=== PATIENT | male | born 1980 | race Caucasian/White ===

== ENCOUNTER 2019-11-06 01:40 | Inpatient (IN) | payer OTHER ==
[2019-11-06 02:03] LABS: Glucose,Whole Blood 338 mg/dL (75-99)
[2019-11-06] MEDS ORDERED: SODIUM CHLORIDE 0.9% 1,000 ML IV ONE (02:03)
[2019-11-06] MEDS ORDERED: MORPHINE SULFATE 4 MG/ML SYRINGE IVP STA (03:02)
[2019-11-06 03:21] LABS: Partial Thromboplastin Time 22.3 sec (22.0-30.0)
[2019-11-06 03:24] LABS: ALT 49 U/L (4-49); AST 28 U/L (17-59); African American GFR (CKD) >90 (>60 ml/min/1.73 sqM); Albumin 3.9 g/dL (3.5-5.0); Alkaline Phosphatase 80 U/L (38-126); Anion Gap 9 mmol/L; Blood Urea Nitrogen 12 mg/dL (9-20); C Reactive Protein 39.7 mg/L (<10.0); Carbon Dioxide 23 mmol/L (22-30); Chloride 101 mmol/L (98-107); Creatine Kinase <20 U/L (55-170); Glucose 347 mg/dL (74-99); Non-African American GFR(CKD) >90 (>60 ml/min/1.73 sqM); Potassium 4.2 mmol/L (3.5-5.1); Sodium 133 mmol/L (137-145); Total Bilirubin 0.4 mg/dL (0.2-1.3); Total Protein 7.2 g/dL (6.3-8.2); Uric Acid 6.1 mg/dL (3.5-8.5)
[2019-11-06 03:25] LABS: Basophils # (A) 0.1 k/uL (0-0.2); Basophils % (A) 1 %; Eosinophils # (A) 0.1 k/uL (0-0.7); Eosinophils % (A) 2 %; HCT 41.4 % (39.0-53.0); HGB 13.8 gm/dL (13.0-17.5); Lymphocytes # (A) 1.8 k/uL (1.0-4.8); Lymphocytes % (A) 28 %; MCHC 33.4 g/dL (31.0-37.0); MCV 83.7 fL (80.0-100.0); Mean Platelet Volume 7.7; Monocytes # (A) 0.4 k/uL (0-1.0); Monocytes % (A) 7 %; Neutrophils # (A) 3.9 k/uL (1.3-7.7); Neutrophils % (A) 59 %; Platelet Count 185 k/uL (150-450); RBC 4.95 m/uL (4.30-5.90); RDW 13.1 % (11.5-15.5); WBC 6.6 k/uL (3.8-10.6)
[2019-11-06] MEDS ORDERED: VANCOMYCIN IV PER PHARMACY 1 EACH MISC MISCELLANE PRN (03:28)
[2019-11-06] MEDS ORDERED: CEFEPIME 1 GM in SODIUM CHLORIDE 0.9% 50 ML IVPB ONE (03:28)
[2019-11-06] MEDS ORDERED: INSULIN REGULAR 100 UNIT/ML VIAL SQ ONE (03:30)
--- NOTE | 2019-11-06 03:31 | ED ---
Extremity Problem HPI - General Chief complaint: Extremity Problem,Nontraumatic Stated complaint: SOB Time Seen by Provider: 11/06/19 01:52 Source: patient Mode of arrival: ambulatory Limitations: no limitations - History of Present Illness Initial comments: Roney is a morbidly obese type II diabetic male who presents to the ER today for evaluation of left ankle pain. Patient states that since the beginning of the shoulder in place order he has been unable to contact his primary care physician therefore has been out of his metformin. Patient reports he hasn't been able to check his glucose believes is elevated. Patient states he's been experiencing some paresthesias in his bilateral lower extremities with some tingling and pain. Patient states that over the past 3 days he's noticed swelling and redness of his left ankle and today became so tender he was unable to ambulate. Patient denies any injury, denies any history of previous episodes similar to this. He denies any history of gout. Patient reports a fever of 101F yesterday, no fever today. Patient denies any concern for STI or any possibility of gonococcal joint infection. - Related Data Home Medications Medication Instructions Recorded Confirmed metFORMIN HCL [Glucophage] 500 mg PO W/SUPPER 05/07/16 05/11/16 Previous Rx's Medication Instructions Recorded Albuterol Inhaler (Bulk) [Ventolin 1 - 2 puff INHALATION Q6HR PRN #2 05/08/16 Hfa Inhaler (Bulk)] puff Benzonatate [Tessalon Perles] 200 mg PO TID 5 Days capsule 05/08/16 Levofloxacin [Levaquin] 500 mg PO DAILY #10 tab 05/11/16 Promethaz-Cod 6.25-10 mg/5 ml 5 ml PO Q6HR PRN #120 ml 05/11/16 [Phenergan with Codeine] methylPREDNISolone [Medrol Dose 4 mg PO DIRECTED #1 pack 05/11/16 Pack] Allergies Allergy/AdvReac Type Severity Reaction Status Date / Time diphenhydramine HCl Allergy Anaphylaxis Verified 11/06/19 01:49 [From Benadryl] hydromorphone HCl Allergy Anaphylaxis Verified 11/06/19 01:49 [From Dilaudid] latex Allergy Rash/Hives Verified 11/06/19 01:49 Review of Systems ROS Statement: Those systems with pertinent positive or pertinent negative responses have been documented in the HPI. ROS Other: All systems not noted in ROS Statement are negative. Past Medical History Past Medical History: Diabetes Mellitus Additional Past Medical History / Comment(s): Sarcoidosis, PNEUMONIA History of Any Multi-Drug Resistant Organisms: None Reported Past Surgical History: No Surgical Hx Reported Additional Past Surgical History / Comment(s): Exploratory Surgery of neck 2000 Past Psychological History: No Psychological Hx Reported Smoking Status: Never smoker Past Alcohol Use History: None Reported Past Drug Use History: None Reported General Exam - General Exam Comments Initial Comments: Physical Exam GENERAL: Patient is well-developed and well-nourished. Patient is nontoxic and well-hydrated and is in no distress. HENT: Normocephalic, Atraumatic. EYES: PERRL, EOMI PULMONARY: Unlabored respirations. CARDIOVASCULAR: RRR Warm and well perfused extremities ABDOMEN: Non-distended SKIN: No rashes or bruising : Deferred NEUROLOGIC: Alert and oriented Normal speech Normal gait MUSCULOSKELETAL: Swelling of the left ankle with some erythema No pitting edema Range of motion of the ankle limited by pain PSYCHIATRIC: No SI/HI Limitations: no limitations Course Vital Signs 11/06/19 11/06/19 01:44 03:37 Temperature 98.4 F Pulse Rate 109 H 90 Respiratory 20 18 Rate Blood Pressure 147/81 139/97 O2 Sat by Pulse 98 96 Oximetry Medical Decision Making - Medical Decision Making The patient was seen and evaluated, history is obtained from patient History and physical exam are concerning for possible septic joint versus gout Septic workup was initiated, patient does have lactic acidosis and elevated CRP with no elevated uric acid At this time we will treat empirically for septic joint Patient care was discussed with admitting physician Dr. Peña who agrees with the plan for admission, broad-spectrum antibiotics, citing seal insulin and consult orthopedics - Lab Data Result diagrams: 11/06/19 02:47 11/06/19 02:47 Lab Results 11/06/19 11/06/19 11/06/19 Range/Units 02:01 02:47 02:47 WBC 6.6 (3.8-10.6) k/uL RBC 4.95 (4.30-5.90) m/uL Hgb 13.8 (13.0-17.5) gm/dL Hct 41.4 (39.0-53.0) % MCV 83.7 (80.0-100.0) fL MCH 28.0 (25.0-35.0) pg MCHC 33.4 (31.0-37.0) g/dL RDW 13.1 (11.5-15.5) % Plt Count 185 (150-450) k/uL Neutrophils % 59 % Lymphocytes % 28 % Monocytes % 7 % Eosinophils % 2 % Basophils % 1 % Neutrophils # 3.9 (1.3-7.7) k/uL Lymphocytes # 1.8 (1.0-4.8) k/uL Monocytes # 0.4 (0-1.0) k/uL Eosinophils # 0.1 (0-0.7) k/uL Basophils # 0.1 (0-0.2) k/uL PT 10.0 (9.0-12.0) sec INR 1.0 (<1.2) APTT 22.3 (22.0-30.0) sec Sodium (137-145) mmol/L Potassium (3.5-5.1) mmol/L Chloride (98-107) mmol/L Carbon Dioxide (22-30) mmol/L Anion Gap mmol/L BUN (9-20) mg/dL Creatinine (0.66-1.25) mg/dL Est GFR (CKD-EPI)AfAm (>60 ml/min/1.73 sqM) Est GFR (CKD-EPI)NonAf (>60 ml/min/1.73 sqM) Glucose (74-99) mg/dL POC Glucose (mg/dL) 338 H (75-99) mg/dL POC Glu Barrel Finisher ID Reymundo AubreyMee Plasma Lactic Acid Hu (0.7-2.0) mmol/L Uric Acid (3.5-8.5) mg/dL Calcium (8.4-10.2) mg/dL Total Bilirubin (0.2-1.3) mg/dL AST (17-59) U/L ALT (4-49) U/L Alkaline Phosphatase (38-126) U/L Creatine Kinase (55-170) U/L C-Reactive Protein (<10.0) mg/L Total Protein (6.3-8.2) g/dL Albumin (3.5-5.0) g/dL 11/06/19 11/06/19 Range/Units 02:47 02:47 WBC (3.8-10.6) k/uL RBC (4.30-5.90) m/uL Hgb (13.0-17.5) gm/dL Hct (39.0-53.0) % MCV (80.0-100.0) fL MCH (25.0-35.0) pg MCHC (31.0-37.0) g/dL RDW (11.5-15.5) % Plt Count (150-450) k/uL Neutrophils % % Lymphocytes % % Monocytes % % Eosinophils % % Basophils % % Neutrophils # (1.3-7.7) k/uL Lymphocytes # (1.0-4.8) k/uL Monocytes # (0-1.0) k/uL Eosinophils # (0-0.7) k/uL Basophils # (0-0.2) k/uL PT (9.0-12.0) sec INR (<1.2) APTT (22.0-30.0) sec Sodium 133 L (137-145) mmol/L Potassium 4.2 (3.5-5.1) mmol/L Chloride 101 (98-107) mmol/L Carbon Dioxide 23 (22-30) mmol/L Anion Gap 9 mmol/L BUN 12 (9-20) mg/dL Creatinine 0.62 L (0.66-1.25) mg/dL Est GFR (CKD-EPI)AfAm >90 (>60 ml/min/1.73 sqM) Est GFR (CKD-EPI)NonAf >90 (>60 ml/min/1.73 sqM) Glucose 347 H (74-99) mg/dL POC Glucose (mg/dL) (75-99) mg/dL POC Glu Barrel Finisher ID Plasma Lactic Acid Hu 2.3 H* (0.7-2.0) mmol/L Uric Acid 6.1 (3.5-8.5) mg/dL Calcium 9.0 (8.4-10.2) mg/dL Total Bilirubin 0.4 (0.2-1.3) mg/dL AST 28 (17-59) U/L ALT 49 (4-49) U/L Alkaline Phosphatase 80 (38-126) U/L Creatine Kinase <20 L (55-170) U/L C-Reactive Protein 39.7 H (<10.0) mg/L Total Protein 7.2 (6.3-8.2) g/dL Albumin 3.9 (3.5-5.0) g/dL Disposition Clinical Impression: Ankle pain, left, Lactic acidosis, Elevated C-reactive protein (CRP), Uncontrolled diabetes mellitus, Morbid obesity with BMI of 40.0-44.9, adult Disposition: ADMITTED IP TO THIS HOSP Condition: Stable Is patient prescribed a controlled substance at d/c from ED?: No Referrals: None,Stated [Primary Care Provider] - 1-2 days
[2019-11-06] MEDS ORDERED: NALOXONE 0.4 MG/ML 1 ML VIAL IV PRN (03:35)
--- NOTE | 2019-11-06 03:42 | XR ---
EXAMINATION TYPE: XR ankle limited LT DATE OF EXAM: 11/06/2019 COMPARISON: NONE HISTORY: Pain TECHNIQUE: 2 views FINDINGS: Ankle mortise is anatomic. There is a large Achilles calcaneal spur. I see no fracture nor dislocation. IMPRESSION: Calcaneal spurring. No fracture seen.
[2019-11-06 03:53] LABS: Erythrocyte Sedimentation Rate 18 mm/hr (0-15)
[2019-11-06] MEDS ORDERED: VANCOMYCIN 2,000 MG in SODIUM CHLORIDE 0.9% 500 ML 500 ML IVPB ONE (04:00)
[2019-11-06 04:20] LABS: Glucose,Whole Blood 302 mg/dL (75-99)
[2019-11-06] MEDS: SODIUM CHLORIDE 0.9% 1,000 ML IV SCH ×2 (04:29→11:50)
--- NOTE | 2019-11-06 06:27 | P.HPIM ---
History of Present Illness H&P Date: 11/06/19 Chief Complaint: left knee pain I was wearing full PPE during this encounter including N95 mask, face shield, double gloves, gown, and head cover. patient had a surgical mask on during my entire interview. i maintained 6 feet distance with the patient who verbalized understanding about these precautionary measures. except for during my physical exam where i had to be close to the patient. 39-year-old male with diabetes mellitus and sarcoidosis Patient comes in due to 3 day history of left ankle swelling pain and inability to ambulate or stand happened all of a sudden denies any injury or trauma denies any fall this has never happened before he denies any history of gout patient came in due to worsening pain over the past 3 days. He also had at that he started having some fever off and on over the past 3 days associated with coughing mild in nature dry, sore throat, and mild diarrhea loose bowel movement brownish in color. Patient denies any changes in smell or taste sensation denies any headache denies any body aches other than the left ankle. Patient then recalled that he's been in close contact with a friend who has heard that tested positive for Covid 19 she is waiting for her results . Patient also reports recent traveling multiple times to [facility] last traveling was October 05 In the ED x-ray of the left ankle showed no acute fractures Patient was admitted to [address] [place] [address], he did not volunteer the above information early on upon further checking the patient he was a concerns regarding Covid 19 upon which she was transferred to the medical floor to avoid transmitting possible disease to the oncology floor Patient reports that he did not have axis to his primary care physician and he ran out of metformin for few days now Review of Systems Pertinent positives as noted in HPI. All other systems were reviewed and are negative Past Medical History Past Medical History: Diabetes Mellitus Additional Past Medical History / Comment(s): Sarcoidosis, PNEUMONIA History of Any Multi-Drug Resistant Organisms: None Reported Past Surgical History: No Surgical Hx Reported Additional Past Surgical History / Comment(s): Exploratory Surgery of neck 1999 Past Psychological History: No Psychological Hx Reported Smoking Status: Never smoker Past Alcohol Use History: None Reported Past Drug Use History: None Reported - Past Family History Family Family Medical History: No Reported History Medications and Allergies Home Medications Medication Instructions Recorded Confirmed Type metFORMIN HCL [Glucophage] 500 mg PO W/SUPPER 05/07/16 05/11/16 History Albuterol Inhaler (Bulk) [Ventolin 1 - 2 puff INHALATION Q6HR PRN #2 05/08/16 05/11/16 Rx Hfa Inhaler (Bulk)] puff Benzonatate [Tessalon Perles] 200 mg PO TID 5 Days capsule 05/08/16 05/11/16 Rx Levofloxacin [Levaquin] 500 mg PO DAILY #10 tab 05/11/16 Rx Promethaz-Cod 6.25-10 mg/5 ml 5 ml PO Q6HR PRN #120 ml 05/11/16 Rx [Phenergan with Codeine] methylPREDNISolone [Medrol Dose 4 mg PO DIRECTED #1 pack 05/11/16 Rx Pack] Allergies Allergy/AdvReac Type Severity Reaction Status Date / Time diphenhydramine HCl Allergy Anaphylaxis Verified 11/06/19 01:49 [From Benadryl] hydromorphone HCl Allergy Anaphylaxis Verified 11/06/19 01:49 [From Dilaudid] latex Allergy Rash/Hives Verified 11/06/19 01:49 Physical Exam Vitals: Vital Signs Temp Pulse Pulse Resp BP BP Pulse Ox 11/06/19 05:06 101 H 18 11/06/19 04:18 98.5 F 79 18 109/65 95 11/06/19 03:51 98.4 F 101 H 16 139/78 97 11/06/19 03:37 90 18 139/97 96 11/06/19 01:44 98.4 F 109 H 20 147/81 98 Intake and Output 11/05/19 11/05/19 11/06/19 14:59 22:59 06:59 Other: Voiding Method Urinal Weight 145.15 kg Limited exam was performed due to concerns for covid infection to prevent spread of the disease main part of the exam was inspection and examination of the left ankle Constitutional: No acute distress, conversant, pleasant Eyes: Anicteric sclerae, moist conjunctiva, Pupils equal round ENMT: NC/AT Neck: Supple, FROM, Lungs: Normal respiratory effort, no accessory muscle use Cardiovascular: No peripheral edema Abdominal: Soft Nontender, no guarding, rebound or rigidity Abdomen moving with respiration No palpable mass Skin: There is area of redness warmth to the touch over the left ankle extending to the lower third of the left leg otherwise Normal temperature, tone, texture, turgor Extremities: No digital cyanosis No clubbing Pedal pulses intact and symmetrical Radial pulses intact and symmetrical ankle is tender, warm to touch, swollen, painful to passive and active movement. There is swelling of the left lower third of the left leg Psychiatric: Alert and oriented to person, place and time Appropriate affect fair judgement Neuro patient moving all 4 extremities freely Sensation to light touch grossly present throughout No focal sensory deficits Lymphatics: Deferred Results CBC & Chem 7: 11/06/19 02:47 11/06/19 02:47 Labs: Abnormal Lab Results - Last 24 Hours (Table) 11/06/19 11/06/19 11/06/19 Range/Units 02:01 02:47 02:47 ESR 18 H (0-15) mm/hr Sodium 133 L (137-145) mmol/L Creatinine 0.62 L (0.66-1.25) mg/dL Glucose 347 H (74-99) mg/dL POC Glucose (mg/dL) 338 H (75-99) mg/dL Plasma Lactic Acid Hu (0.7-2.0) mmol/L Creatine Kinase <20 L (55-170) U/L C-Reactive Protein 39.7 H (<10.0) mg/L 11/06/19 11/06/19 Range/Units 02:47 04:15 ESR (0-15) mm/hr Sodium (137-145) mmol/L Creatinine (0.66-1.25) mg/dL Glucose (74-99) mg/dL POC Glucose (mg/dL) 302 H (75-99) mg/dL Plasma Lactic Acid Hu 2.3 H* (0.7-2.0) mmol/L Creatine Kinase (55-170) U/L C-Reactive Protein (<10.0) mg/L Thrombosis Risk Factor Assmnt - Choose All That Apply Any of the Below Risk Factors Present?: Yes Each Factor Represents 1 point: Obesity (BMI >25) Thrombosis Risk Factor Assessment Total Risk Factor Score: 1 Thrombosis Risk Factor Assessment Level: Low Risk Assessment and Plan Assessment: 39-year-old male with diabetes mellitus not compliant with metformin, sa rcoidosis Patient comes in due to left ankle swelling pain and inability to ambulate over the past 3 days then he reports that this was associated with some mild cough fever and diarrhea this is suspicious for Covid 19 infection anticipated length of stay more than 2 midnights Left ankle swelling and pain Rule out septic arthritis Rule out left lower extremity DVT Pain control with Toradol Orthopedic consultation Ankle x-ray showed no fractures Venous duplex ultrasound left lower extremity Acute bronchitis, cough fever and diarrhea suspicious for Covid 19 infection Test Covid Test influenza Check chest x-ray Contact and droplet isolation Indigo Schaffer this with hyperglycemia secondary to noncompliance Check A1c Insulin sliding scale CODE STATUS: Full code DVT prophylaxis: Heparin subcu 3 times a day Discussed with: Patient, ER, RN Anticipated length of stay more than [address]: Home A total of 60 minutes was spent on the care of this complex patient more than 50% of the time was spent in counseling and care coordination.
[2019-11-06 06:46] LABS: Glucose,Whole Blood 252 mg/dL (75-99)
[2019-11-06] MEDS: MORPHINE SULFATE 4 MG/ML SYRINGE IV PRN ×2 (07:20→22:36)
[2019-11-06] MEDS: INSULIN ASPART (NovoLOG) 100 UNIT/ML VIAL SQ SCH ×4 (07:23→21:17)
--- NOTE | 2019-11-06 07:55 | XR ---
EXAMINATION TYPE: XR chest 1V DATE OF EXAM: 11/06/2019 COMPARISON: 05/11/2016 HISTORY: Chest pain TECHNIQUE: Single frontal view of the chest is obtained. FINDINGS: Nonspecific infiltrate right medial lung base. The cardiac silhouette size is within normal limits. The osseous structures are intact. IMPRESSION: 1. Nonspecific infiltrate right medial lung base.
--- NOTE | 2019-11-06 08:35 | US ---
EXAMINATION TYPE: US venous doppler duplex LE LT DATE OF EXAM: 11/06/2019 8:30 AM COMPARISON: NONE CLINICAL HISTORY: dvt. Left leg and foot pain x 3 days, exam done portable. SIDE PERFORMED: Left TECHNIQUE: The lower extremity deep venous system is examined utilizing real time linear array sonog adriel with graded compression, doppler sonography and color-flow sonography. VESSELS IMAGED: External Iliac Vein (EIV) Common Femoral Vein Deep Femoral Vein Greater Saphenous Vein * Femoral Vein Popliteal Vein Small Saphenous Vein * Proximal Calf Veins (* superficial vessels) Left Leg: Appears negative for DVT IMPRESSION: No evidence of DVT
[2019-11-06] MEDS ORDERED: ACETAMINOPHEN TAB 325 MG TAB PO PRN (10:04)
--- NOTE | 2019-11-06 10:12 | P.CNOR ---
History of Present Illness - [facility] Consult date: 11/06/19 History of present illness: This patient is a 39-year-old male with a past medical history of diabetes and sarcoidosis that presented to [facility] ER last night with complaints of left ankle pain. The patient states he began to experience left ankle pain about 3 days ago. Patient states there was no injury or trauma to the ankle. He states he just woke up a few days ago with significant pain and swelling. He states the pain has increased over the past 3 days. He states the pain is diffuse. He states the pain is very severe with any movement or weightbearing the left ankle. He states he was crawling around his house yesterday due to the pain. He denies history of gout. He denies history of any similar episodes in the past. Upon arrival to the ER, patient had a fever of 101 degrees, white blood cell count 6.6, ESR 18, CRP 39.7. Venous Doppler study of the left lower extremity negative for DVT. Patient was admitted under the care of of internal medicine with a consult placed to orthopedic surgery for consideration of left ankle septic arthritis. The patient was initially admitted to [facility], although after evaluation by internal medicine, the patient was transferred to [facility], with with concerns for suspected COVID 19 due to recent positive contacts and travel to [place]. At the time of my exam, the patient is complaining of severe left ankle pain. There are no additional complaints. Vital signs stable, patient currently afebrile. Past Medical History Past Medical History: Diabetes Mellitus Additional Past Medical History / Comment(s): Sarcoidosis, PNEUMONIA History of Any Multi-Drug Resistant Organisms: None Reported Past Surgical History: No Surgical Hx Reported Additional Past Surgical History / Comment(s): Exploratory Surgery of neck 1999 Past Psychological History: No Psychological Hx Reported Smoking Status: Never smoker Past Alcohol Use History: None Reported Past Drug Use History: None Reported - Past Family History Family Family Medical History: No Reported History Medications and Allergies Home Medications Medication Instructions Recorded Confirmed Type No Known Home Medications 11/06/19 11/06/19 History Allergies Allergy/AdvReac Type Severity Reaction Status Date / Time diphenhydramine HCl Allergy Anaphylaxis Verified 11/06/19 07:58 [From Benadryl] hydromorphone HCl Allergy Anaphylaxis Verified 11/06/19 07:58 [From Dilaudid] latex Allergy Rash/Hives Verified 11/06/19 07:58 Physical Examination At the time of my exam, the patient is sitting up in bed and appears in mild distress due to pain. He appears uncomfortable. His head appears normocephalic and atraumatic. On inspection of the bilateral upper extremities, there is no obvious deformity or signs of trauma. On inspection of the left ankle, there is a large joint effusion. There is mild overlying erythema. There is severe pain with any attempts at passive range of motion of the ankle. There is no pain on palpation of the left calf or left knee. Motor and sensory function intact left lower extremity. The left lower extremity is warm and well-perfused with brisk capillary refill distally. Results Left ankle x-ray 11/06/2019: No acute fractures or dislocations. Stable ankle mortise. - Labs Labs: Abnormal Lab Results - Last 24 Hours (Table) 11/06/19 11/06/19 11/06/19 Range/Units 02:01 02:47 02:47 ESR 18 H (0-15) mm/hr Sodium 133 L (137-145) mmol/L Creatinine 0.62 L (0.66-1.25) mg/dL Glucose 347 H (74-99) mg/dL POC Glucose (mg/dL) 338 H (75-99) mg/dL Plasma Lactic Acid Hu (0.7-2.0) mmol/L Creatine Kinase <20 L (55-170) U/L C-Reactive Protein 39.7 H (<10.0) mg/L 11/06/19 11/06/19 11/06/19 Range/Units 02:47 04:15 06:44 ESR (0-15) mm/hr Sodium (137-145) mmol/L Creatinine (0.66-1.25) mg/dL Glucose (74-99) mg/dL POC Glucose (mg/dL) 302 H 252 H (75-99) mg/dL Plasma Lactic Acid Hu 2.3 H* (0.7-2.0) mmol/L Creatine Kinase (55-170) U/L C-Reactive Protein (<10.0) mg/L H & H 11/06/19 Range/Units 02:47 Hgb 13.8 (13.0-17.5) gm/dL Hct 41.4 (39.0-53.0) % Coagulation 11/06/19 Range/Units 02:47 INR 1.0 (<1.2) Result Diagrams: 11/06/19 02:47 11/06/19 02:47 Assessment and Plan Assessment: Left ankle joint effusion Left ankle pain Rule-out septic arthritis Plan: - I discussed the clinical findings with the patient. I discussed the patient with Dr. Leavitt. I explained to the patient that his clinical presentation is concerning for possible left ankle septic arthritis. I recommended aspiration of the left ankle. Patient is agreeable to this plan. - I recommended rest, ice, elevation of the left ankle. He should remain nonweightbearing on the left ankle at this time. - Pain management and medical management per admitting team. - Further recommendations will be made pending synovial fluid analysis results. Patient discussed with Dr. Leavitt. Procedure: Verbal consent for a left ankle aspiration was obtained. The skin over the anteromedial aspect of the left ankle was prepped with ChloraPrep. Using sterile technique, an 18-gauge needle was inserted directly into the left ankle and 5 mL's of cloudy, yellow bloody fluid was aspirated. There was not purulence. The needle was withdrawn and a bandage was applied. Patient tolerated this well. The synovial fluid was sent to the lab for cell count, culture and sensitivity, and crystal analysis.
[2019-11-06] MEDS: KETOROLAC 30 MG/ML 1 ML VIAL IVP PRN ×3 (10:19→22:35)
[2019-11-06 11:22] LABS: Appearance,BF Bloody; Color,BF Red; Nucleated Cells, Body Fluid 4500 /uL; RBC, Body Fluid 76500 /uL
[2019-11-06 11:26] LABS: Mononuclear WBC,Body Fluid 7 %; Polynuclear WBC,Body Fluid 91 %; Total Cells Counted,Body Fluid 100
[2019-11-06 11:33] LABS: Glucose,Whole Blood 217 mg/dL (75-99)
[2019-11-06] MEDS ORDERED: VANCOMYCIN 2,000 MG in SODIUM CHLORIDE 0.9% 500 ML 500 ML IVPB SCH (13:00)
[2019-11-06 16:39] LABS: Glucose,Whole Blood 271 mg/dL (75-99)
[2019-11-06] MEDS ORDERED: diphenhydrAMINE 25 MG CAP PO PRN (18:02)
--- NOTE | 2019-11-06 18:03 | P.PN ---
Progress Note - Text Progress Note Date: 11/06/19 Hospitalist Interval Note Patient seen and examined by over 19 with H&P placed on the chart after 6 AM. This is a follow-up note only. Patient seen and examined at bedside. He complains of not feeling well overall as well as right ankle pain. He denies any shortness of breath, minimal cough, no nausea or vomiting, Vital signs reviewed General: non toxic, no distress, appears at stated age Derm: area of plaquinging with scale on abdomen approc 3 cm in size consistent with psoraisis type plaque, warm, dry Head: atraumatic, normocephalic, symmetric Eyes: EOMI, no lid lag, anicteric sclera Mouth: no lip lesion, mucus membranes moist Cardiovascular: S1S2 reg, no murmur, positive posterior tibial pulse bilateral, Lungs: CTA bilateral, no rhonchi, no rales , no accessory muscle use Abdominal: soft, nontender to palpation, no guarding, no appreciable organomegaly Ext: no gross muscle atrophy, no edema, no contractures Neuro: CN II-XI grossly intact, no focal neuro deficits Psych: Alert, oriented, appropriate affect Assessment/Plan: Left ankle pain and swelling -Suspect gouty arthropathy with results of synovial fluid analysis, steroids started. Acute bronchitis -Coated 19 testing is negative. Concern is that he has sarcoidosis and possible sarcoid flare. Will start steroids. Bronchodilators. Dermatitis of the abdomen -Start hydrocortisone cream -Benadryl when necessary itching This is an update note for patient , for full note on 11/06/2019 see H and P. There is no charge associated with this note.
[2019-11-06] MEDS: ALBUTEROL HFA INHALER INHALATION PRN (18:58)
[2019-11-06 21:14] LABS: Glucose,Whole Blood 251 mg/dL (75-99)
[2019-11-06] MEDS: methylPREDNISolone SOD SUCCI 125 MG/2 ML VIAL IV SCH (21:15)
[2019-11-06] MEDS: HYDROCORTISONE 1% CREAM 30 GM TUBE TOPICAL SCH (22:28)
[2019-11-07] MEDS: methylPREDNISolone SOD SUCCI 125 MG/2 ML VIAL IV SCH ×3 (01:49→21:21)
[2019-11-07 03:40] LABS: Glucose,Whole Blood 354 mg/dL (75-99)
[2019-11-07] MEDS: MORPHINE SULFATE 4 MG/ML SYRINGE IV PRN ×2 (04:56→09:06)
[2019-11-07 07:02] LABS: Glucose,Whole Blood 376 mg/dL (75-99)
[2019-11-07] MEDS: ALBUTEROL HFA INHALER INHALATION PRN ×2 (08:02→21:26)
[2019-11-07] MEDS: INSULIN ASPART (NovoLOG) 100 UNIT/ML VIAL SQ SCH ×4 (08:19→21:04)
[2019-11-07] MEDS: HYDROCORTISONE 1% CREAM 30 GM TUBE TOPICAL SCH ×2 (08:20→21:05)
[2019-11-07 08:42] LABS: ALT 55 U/L (4-49); AST 34 U/L (17-59); African American GFR (CKD) >90 (>60 ml/min/1.73 sqM); Alkaline Phosphatase 88 U/L (38-126); Anion Gap 11 mmol/L; Blood Urea Nitrogen 15 mg/dL (9-20); Calcium 9.2 mg/dL (8.4-10.2); Carbon Dioxide 23 mmol/L (22-30); Chloride 102 mmol/L (98-107); Glucose 387 mg/dL (74-99); Non-African American GFR(CKD) >90 (>60 ml/min/1.73 sqM); Potassium 4.9 mmol/L (3.5-5.1); Sodium 136 mmol/L (137-145); Total Bilirubin 0.5 mg/dL (0.2-1.3); Total Protein 7.3 g/dL (6.3-8.2)
[2019-11-07 08:52] LABS: HCT 42.5 % (39.0-53.0); HGB 14.5 gm/dL (13.0-17.5); MCH 28.7 pg (25.0-35.0); MCHC 34.1 g/dL (31.0-37.0); MCV 84.3 fL (80.0-100.0); Mean Platelet Volume 7.9; Platelet Count 200 k/uL (150-450); RBC 5.04 m/uL (4.30-5.90); WBC 7.6 k/uL (3.8-10.6)
[2019-11-07] MEDS: KETOROLAC 30 MG/ML 1 ML VIAL IVP PRN ×3 (09:06→23:47)
--- NOTE | 2019-11-07 10:45 | P.PN ---
Subjective Progress Note Date: 11/07/19 This patient is a 39-year-old male with a past medical history of diabetes and sarcoidosis that presented to [facility] ER 11/06/19 with complaints of left ankle pain. The patient states he began to experience left ankle pain about 3 days ago. Patient states there was no injury or trauma to the ankle. He states he just woke up a few days ago with significant pain and swelling. He states the pain has increased over the past 3 days. He states the pain is diffuse. He states the pain is very severe with any movement or weightbearing the left ankle. He states he was crawling around his house yesterday due to the pain. He denies history of gout. He denies history of any similar episodes in the past. Upon arrival to the ER, patient had a fever of 101 degrees, white blood cell count 6.6, ESR 18, CRP 39.7. Venous Doppler study of the left lower extremity negative for DVT. Patient was admitted under the care of of internal medicine with a consult placed to orthopedic surgery for consideration of left ankle septic arthritis. The patient was initially admitted to [facility], although after evaluation by internal medicine, the patient was transferred to [facility], with with concerns for suspected COVID 19 due to recent positive contacts and travel to [place]. At the time of my exam, the patient is complaining of severe left ankle pain. There are no additional complaints. Vital signs stable, patient currently afebrile. 11/07/19: Patient is examined bedside this morning. COVID19 testing resulted as negative, therefore patient was transferred from [facility] to [facility]. Patient is seen in follow-up in regards to his left ankle, which was aspirated yesterday bedside. Synovial fluid was sent for lab analysis, which revealed sodium urate crystals, nucleated cell count 4500. Gram stain revealed no organisms. Patient was placed on IV methylprednisolone per Dr. Cheng. Patient states his left ankle is still painful, although the pain is improved from yesterday. He states he is no longer experiencing pain at rest, he is only experiencing pain when he attempts moving the ankle or ambulating. He denies any new complaints or regards to his left ankle today. Vital signs stable, patient afebrile. Objective - Vital Signs Vital signs: Vital Signs Temp 97.5 F L 11/07/19 05:28 Pulse 68 11/07/19 05:28 Resp 18 11/07/19 05:28 BP 105/70 11/07/19 05:28 Pulse Ox 94 L 11/07/19 05:28 Intake & Output 11/06/19 11/07/19 11/07/19 18:59 06:59 18:59 Intake Total 1352 Balance 1352 Intake: Intake, IV Titration 1130 Amount Sodium Chloride 0.9% 1, 630 000 ml @ 126 mls/hr IV . Q7H57M [facility] Rx#:[id number] Vancomycin 2,000 mg In 500 Sodium Chloride 0.9% 500 ml 500 ml @ 167 mls/hr IVPB Q8H [facility] Rx#: [id number] Oral 222 Other: Voiding Method Urinal Urinal # Voids 1 - Exam At the time of my exam, the patient is sitting up in bed in no apparent distress. He appears comfortable today. His breathing appears nonlabored. Nasal cannula in place. On inspection of the left ankle, there is a small- moderate joint effusion. There is minimal overlying erythema. There is moderate pain with any attempts at passive range of motion of the ankle. There is no pain on palpation of the left calf or left knee. Motor and sensory function appear intact of the left lower extremity. The left lower extremity is warm and well-perfused with brisk capillary refill distally. - Labs CBC & Chem 7: 11/07/19 07:46 11/07/19 07:46 Labs: Abnormal Lab Results - Last 24 Hours (Table) 11/06/19 11/06/19 11/06/19 Range/Units 09:00 11:31 16:37 Sodium (137-145) mmol/L Creatinine (0.66-1.25) mg/dL Glucose (74-99) mg/dL POC Glucose (mg/dL) 217 H 271 H (75-99) mg/dL ALT (4-49) U/L Synovial Crystals Seen H (None Seen) 11/06/19 11/07/19 11/07/19 Range/Units 21:03 03:34 07:00 Sodium (137-145) mmol/L Creatinine (0.66-1.25) mg/dL Glucose (74-99) mg/dL POC Glucose (mg/dL) 251 H 354 H 376 H (75-99) mg/dL ALT (4-49) U/L Synovial Crystals (None Seen) 11/07/19 Range/Units 07:46 Sodium 136 L (137-145) mmol/L Creatinine 0.56 L (0.66-1.25) mg/dL Glucose 387 H (74-99) mg/dL POC Glucose (mg/dL) (75-99) mg/dL ALT 55 H (4-49) U/L Synovial Crystals (None Seen) Microbiology - Last 24 Hours (Table) 11/06/19 09:00 Gram Stain - Preliminary Synovial Fluid Body Fluid Culture - Preliminary 11/06/19 02:47 Blood Culture - Preliminary Blood No Growth after 24 hours Assessment and Plan Assessment: Acute gout flare, left ankle Joint fusion, left ankle Plan: - I discussed the clinical findings and the synovial fluid analysis with the patient. I explained his symptoms are most likely related to an acute gout flare. - We will defer gout treatment to the internal medicine team, patient is currently receiving 60mg IV methylprednisolone q8h per Dr. Cheng. Patient would most likely benefit from a course of oral steroids following discharge. I also offered a cortisone injection into the left ankle today, although patient declined at this time. - Immobilization with a tall CAM boot may aide with ambulation, case management consulted to obtain before discharge. - We will continue to follow patient while he remains inpatient. Patient may follow-up with Dr. Leavitt following discharge on an as needed basis.
[2019-11-07 11:30] LABS: Glucose,Whole Blood 394 mg/dL (75-99)
[2019-11-07] MEDS ORDERED: INSULIN DETEMIR (LEVEMIR) 100 UNIT/ML SYR SQ ONE (13:30)
--- NOTE | 2019-11-07 13:41 | P.PN ---
Subjective Progress Note Date: 11/07/19 Principal diagnosis: Intractable pain due to Gout Patient seen and examined at bedside. On initial presentation patient was very irritable. Patient asked me to leave until he finished his lunch. He was frustrated that he was going to be discharged today. Patient had concerns about infiltrate on chest x-ray patient further had concerns about his continued foot pain and patient had concerns about his elevated blood sugar. Patient was demanding to see a sarcoidosis specialist. He denies chest pain but admits that his oxygen is not normal. Patient's nurse and I checked his pulse ox multiple times. Patient was found to be holding his breath when his oxygen dropped to 88% on repeat patient's oxygen was 96% it appears that patient does not want to leave the hospital quite yet. Throughout assessment patient was very dismissive, rude, and insulting. Objective - Vital Signs Vital signs: Vital Signs Temp 97.5 F L 11/07/19 05:28 Pulse 68 11/07/19 05:28 Resp 22 11/07/19 12:59 BP 105/70 11/07/19 05:28 Pulse Ox 96 11/07/19 12:59 Intake & Output 11/06/19 11/07/19 11/07/19 18:59 06:59 18:59 Intake Total 1352 Balance 1352 Intake: Intake, IV Titration 1130 Amount Sodium Chloride 0.9% 1, 630 000 ml @ 126 mls/hr IV . Q7H57M [facility] Rx#:[id number] Vancomycin 2,000 mg In 500 Sodium Chloride 0.9% 500 ml 500 ml @ 167 mls/hr IVPB Q8H [facility] Rx#: [id number] Oral 222 Other: Voiding Method Urinal Urinal # Voids 1 - Exam Physical exam Gen. irritable and uncooperative Heart lungs and abdominal exam were not obtained secondary to patient's ir ritability - Labs CBC & Chem 7: 11/07/19 07:46 11/07/19 07:46 Labs: Abnormal Lab Results - Last 24 Hours (Table) 11/06/19 11/06/19 11/06/19 Range/Units 09:00 16:37 21:03 Sodium (137-145) mmol/L Creatinine (0.66-1.25) mg/dL Glucose (74-99) mg/dL POC Glucose (mg/dL) 271 H 251 H (75-99) mg/dL ALT (4-49) U/L Synovial Crystals Seen H (None Seen) 11/07/19 11/07/19 11/07/19 Range/Units 03:34 07:00 07:46 Sodium 136 L (137-145) mmol/L Creatinine 0.56 L (0.66-1.25) mg/dL Glucose 387 H (74-99) mg/dL POC Glucose (mg/dL) 354 H 376 H (75-99) mg/dL ALT 55 H (4-49) U/L Synovial Crystals (None Seen) 11/07/19 Range/Units 11:28 Sodium (137-145) mmol/L Creatinine (0.66-1.25) mg/dL Glucose (74-99) mg/dL POC Glucose (mg/dL) 394 H (75-99) mg/dL ALT (4-49) U/L Synovial Crystals (None Seen) Microbiology - Last 24 Hours (Table) 11/06/19 09:00 Gram Stain - Preliminary Synovial Fluid Body Fluid Culture - Preliminary 11/06/19 02:47 Blood Culture - Preliminary Blood No Growth after 24 hours Assessment and Plan Assessment: Left ankle pain and swelling -Likely caused by gouty arthropathy with results of synovial fluid analysis, steroids started. Acute bronchitis -COVID 19 testing is negative. Concern is that he has sarcoidosis and possible sarcoid flare. Will start steroids. Bronchodilators. -azithromycin will be started - pulmonary consulted -CXR ordered DM uncontrolled from steroids -start levemir 5units sub q qhs -continue sliding scale Dermatitis of the abdomen -Start hydrocortisone cream -Benadryl when necessary itching AM labs
[2019-11-07] MEDS ORDERED: AZITHROMYCIN 500 MG TAB PO ONE (14:00)
--- NOTE | 2019-11-07 15:07 | XR ---
EXAMINATION TYPE: XR chest 2V DATE OF EXAM: 11/07/2019 COMPARISON: Yesterday HISTORY: Cough. Fever. Short of breath TECHNIQUE: FINDINGS: Heart and mediastinum are normal. Lungs are clear. Diaphragm is normal. Bony thorax appears normal. IMPRESSION: Normal chest. No change.
[2019-11-07 16:49] LABS: Glucose,Whole Blood 435 mg/dL (75-99)
[2019-11-07] MEDS: MORPHINE SULFATE 2 MG/ML SYRINGE IVP PRN (17:53)
[2019-11-07] MEDS ORDERED: VANCOMYCIN TROUGH DUE 1 EACH MISC MISCELLANE ONE (20:00)
[2019-11-07 20:27] LABS: Glucose,Whole Blood 414 mg/dL (75-99)
[2019-11-08] MEDS: MORPHINE SULFATE 2 MG/ML SYRINGE IVP PRN ×3 (01:11→21:19)
[2019-11-08 01:25] LABS: Glucose,Whole Blood 332 mg/dL (75-99)
[2019-11-08 07:04] LABS: Glucose,Whole Blood 342 mg/dL (75-99)
[2019-11-08 08:17] LABS: Basophils % (A) 0 %; Eosinophils % (A) 0 %; HCT 39.9 % (39.0-53.0); HGB 13.3 gm/dL (13.0-17.5); Lymphocytes # (A) 0.7 k/uL (1.0-4.8); Lymphocytes % (A) 8 %; MCH 28.6 pg (25.0-35.0); MCHC 33.4 g/dL (31.0-37.0); MCV 85.6 fL (80.0-100.0); Mean Platelet Volume 8.2; Monocytes # (A) 0.4 k/uL (0-1.0); Monocytes % (A) 4 %; Neutrophils % (A) 87 %; Platelet Count 207 k/uL (150-450); RBC 4.66 m/uL (4.30-5.90); RDW 13.1 % (11.5-15.5); WBC 9.3 k/uL (3.8-10.6)
[2019-11-08] MEDS: ALBUTEROL HFA INHALER INHALATION PRN ×2 (08:23→15:09)
[2019-11-08] MEDS: INSULIN ASPART (NovoLOG) 100 UNIT/ML VIAL SQ SCH ×4 (08:24→21:17)
[2019-11-08 08:25] LABS: ALT 41 U/L (4-49); AST 19 U/L (17-59); African American GFR (CKD) >90 (>60 ml/min/1.73 sqM); Albumin 3.6 g/dL (3.5-5.0); Alkaline Phosphatase 69 U/L (38-126); Anion Gap 11 mmol/L; Blood Urea Nitrogen 20 mg/dL (9-20); Calcium 9.1 mg/dL (8.4-10.2); Carbon Dioxide 22 mmol/L (22-30); Chloride 104 mmol/L (98-107); Glucose 370 mg/dL (74-99); Non-African American GFR(CKD) >90 (>60 ml/min/1.73 sqM); Potassium 4.7 mmol/L (3.5-5.1); Sodium 137 mmol/L (137-145); Total Bilirubin 0.3 mg/dL (0.2-1.3); Total Protein 6.8 g/dL (6.3-8.2)
[2019-11-08] MEDS: methylPREDNISolone SOD SUCCI 125 MG/2 ML VIAL IV SCH (08:25)
[2019-11-08] MEDS: AZITHROMYCIN 250 MG TAB PO SCH (08:25)
[2019-11-08] MEDS: HYDROCORTISONE 1% CREAM 30 GM TUBE TOPICAL SCH ×2 (08:27→21:17)
[2019-11-08] MEDS: KETOROLAC 30 MG/ML 1 ML VIAL IVP PRN ×2 (08:45→22:26)
[2019-11-08] MEDS ORDERED: predniSONE 20 MG TAB PO SCH (09:00)
[2019-11-08 11:47] LABS: Glucose,Whole Blood 420 mg/dL (75-99)
[2019-11-08 17:00] LABS: Glucose,Whole Blood 406 mg/dL (75-99)
--- NOTE | 2019-11-08 18:23 | P.PN ---
Subjective Progress Note Date: 11/08/19 Patient was surprisingly cooperative today. Patient states that his right foot is now swollen. However when compared to the left foot it does not appear to be swollen. Patient's blood sugars continue to be elevated. Levemir was started yesterday and will be increased today. He is still awaiting his surgical boot before discharge. Patient denies chest pain or shortness of breath at this time. Chest x-ray reviewed with the patient and there is no acute process. Prior infiltrate seen is no longer present. Patient is concerned he will not have any medications because he no longer has medical insurance. Patient is agreeable to be discharged tomorrow. Objective - Vital Signs Vital signs: Vital Signs Temp 97.4 F L 11/08/19 12:44 Pulse 91 11/08/19 12:44 Resp 17 11/08/19 12:44 BP 128/88 11/08/19 12:44 Pulse Ox 97 11/08/19 12:44 Intake & Output 11/07/19 11/08/19 11/08/19 18:59 06:59 18:59 Intake Total 240 Balance 240 Intake: Oral 240 Other: Voiding Method Urinal # Voids 2 2 4 # Bowel Movements 0 - Exam General: [non toxic], [no distress], [appears at stated age] Derm: [warm], [dry] Head: [atraumatic], [normocephalic], [symmetric] Eyes: [EOMI], [no lid lag], [anicteric sclera] Mouth: [no lip lesion], [mucus membranes moist] Cardiovascular: [S1S2 reg], [no murmur], [positive posterior tibial pulse bilateral], Lungs: [CTA bilateral], [no rhonchi, no rales] , [no accessory muscle use] Abdominal: [soft], [ nontender to palpation], [no guarding], [no appreciable organomegaly] Ext: [no gross muscle atrophy], [left foot edema +1 edema], [no contractures] Neuro: [ CN II-XI grossly intact], [no focal neuro deficits] Psych: [Alert], [oriented], [appropriate affect] - Labs CBC & Chem 7: 11/08/19 07:37 11/08/19 07:37 Labs: Abnormal Lab Results - Last 24 Hours (Table) 11/07/19 11/08/19 11/08/19 Range/Units 20:16 01:15 07:02 Neutrophils # (1.3-7.7) k/uL Lymphocytes # (1.0-4.8) k/uL Creatinine (0.66-1.25) mg/dL Glucose (74-99) mg/dL POC Glucose (mg/dL) 414 H 332 H 342 H (75-99) mg/dL 11/08/19 11/08/19 11/08/19 Range/Units 07:37 07:37 11:45 Neutrophils # 8.0 H (1.3-7.7) k/uL Lymphocytes # 0.7 L (1.0-4.8) k/uL Creatinine 0.61 L (0.66-1.25) mg/dL Glucose 370 H (74-99) mg/dL POC Glucose (mg/dL) 420 H (75-99) mg/dL 11/08/19 Range/Units 16:59 Neutrophils # (1.3-7.7) k/uL Lymphocytes # (1.0-4.8) k/uL Creatinine (0.66-1.25) mg/dL Glucose (74-99) mg/dL POC Glucose (mg/dL) 406 H (75-99) mg/dL Microbiology - Last 24 Hours (Table) 11/06/19 09:00 Gram Stain - Preliminary Synovial Fluid Body Fluid Culture - Preliminary 11/06/19 02:47 Blood Culture - Preliminary Blood No Growth after 48 hours Assessment and Plan Assessment: Left ankle pain and swelling -Likely caused by gouty arthropathy with results of synovial fluid analysis, IV steroids changed to orals -norco prn Acute bronchitis -COVID 19 testing is negative. Concern is that he has sarcoidosis and possible sarcoid flare. Will start steroids. Bronchodilators. -azithromycin will be started - pulmonary consulted - Repeat CXR was normal DM uncontrolled from steroids -increased levemir to 15 units q day -continue sliding scale Disposition DC in the Am AM labs
[2019-11-08 20:58] LABS: Glucose,Whole Blood 487 mg/dL (75-99)
[2019-11-08] MEDS ORDERED: INSULIN DETEMIR (LEVEMIR) 100 UNIT/ML SYR SQ SCH (21:00)
[2019-11-09 06:54] LABS: Glucose,Whole Blood 397 mg/dL (75-99)
[2019-11-09] MEDS ORDERED: INSULIN DETEMIR (LEVEMIR) 100 UNIT/ML SYR SQ SCH ×4 (07:00→21:00)
[2019-11-09] MEDS: ALBUTEROL HFA INHALER INHALATION PRN ×3 (07:36→19:49)
[2019-11-09] MEDS: INSULIN ASPART (NovoLOG) 100 UNIT/ML VIAL SQ SCH ×4 (07:44→21:20)
[2019-11-09] MEDS: AZITHROMYCIN 250 MG TAB PO SCH (07:45)
[2019-11-09] MEDS: predniSONE 20 MG TAB PO SCH (07:45)
[2019-11-09] MEDS: HYDROCORTISONE 1% CREAM 30 GM TUBE TOPICAL SCH ×2 (07:50→21:20)
[2019-11-09 08:07] LABS: African American GFR (CKD) >90 (>60 ml/min/1.73 sqM); Non-African American GFR(CKD) >90 (>60 ml/min/1.73 sqM)
[2019-11-09] MEDS: HYDROcodone/APAP 7.5-325MG 1 EACH TAB PO PRN ×2 (08:59→17:22)
[2019-11-09] MEDS: MORPHINE SULFATE 2 MG/ML SYRINGE IVP PRN ×2 (10:26→21:26)
[2019-11-09 11:54] LABS: Glucose,Whole Blood 355 mg/dL (75-99)
--- NOTE | 2019-11-09 16:33 | P.PN ---
Subjective Progress Note Date: 11/09/19 Principal diagnosis: Gout Patient still having severe pain in his left ankle. He is barely able to stand up or walk without severe pain. Has been having some chills but no fevers. Breathing seems to be okay, has some dry cough as well. Patient states that his right ankle starting to hurt at this point as well. Objective - Vital Signs Vital signs: Vital Signs Temp 96.6 F L 11/09/19 12:03 Pulse 68 11/09/19 12:03 Resp 20 11/09/19 12:03 BP 142/87 11/09/19 12:03 Pulse Ox 95 11/09/19 12:03 Intake & Output 11/08/19 11/09/19 11/09/19 18:59 06:59 18:59 Intake Total 240 580 Output Total 700 Balance 240 -700 580 Intake: Oral 240 580 Output: Urine 700 Other: Voiding Method Urinal # Voids 4 2 - Exam Constitutional: No acute distress, conversant, pleasant Eyes:Anicteric sclerae, moist conjunctiva, no lid-lag, PERRLA, ENMT: Oropharynx clear, no erythema, exudates Neck: Supple, FROM, no masses, or JVD, No carotid bruits, No thyromegaly Lungs: Clear to auscultation, Clear to percussion, Normal respiratory effort, no accessory muscle use Cardiovascular: Heart regular in rate and rhythm, No murmurs, gallops, or rubs, No peripheral edema Abdominal: Soft, Nontender, no guarding, rebound or rigidity, Normoactive bowel sounds, No hepatomegaly, No splenomegaly, No palpable mass Skin: Normal temperature, tone, texture, turgor, no induration, No subcutaneous nodules, No rash, lesions, No ulcers Extremities: Left ankle joint swollen, very tender No digital cyanosis, No clubbing, Pedal pulses intact and symmetrical, Radial pulses intact and symmetrical, No calf tenderness Psychiatric: Alert and oriented to person, place and time, appropriate affect, intact judgement Neuro: Muscles Strength 5/5 in all 4 extremities, Sensation to light touch grossly present throughout, Cranial nerves II-XII grossly intact, no focal sensory deficits - Labs CBC & Chem 7: 11/08/19 07:37 11/09/19 06:37 Labs: Abnormal Lab Results - Last 24 Hours (Table) 11/08/19 11/08/19 11/09/19 Range/Units 16:59 20:56 06:51 POC Glucose (mg/dL) 406 H 487 H 397 H (75-99) mg/dL 11/09/19 Range/Units 11:43 POC Glucose (mg/dL) 355 H (75-99) mg/dL Microbiology - Last 24 Hours (Table) 11/06/19 09:00 Gram Stain - Preliminary Synovial Fluid Body Fluid Culture - Preliminary 11/06/19 02:47 Blood Culture - Preliminary Blood No Growth after 72 hours Assessment and Plan Plan: Left ankle pain and swelling -Likely caused by gouty arthritis, -Continue steroids, toradol q 6hrs -norco prn Acute bronchitis -COVID 19 testing is negative. -continue azithromycin - pulmonary consulted - Repeat CXR was normal DM uncontrolled from steroids -increased levemir further to 18 units q day -continue sliding scale Disposition DC in the Am AM labs
[2019-11-09 16:46] LABS: Glucose,Whole Blood 421 mg/dL (75-99)
[2019-11-09] MEDS: KETOROLAC 30 MG/ML 1 ML VIAL IVP PRN (19:05)
[2019-11-09 20:28] LABS: Glucose,Whole Blood 433 mg/dL (75-99)
[2019-11-09 21:40] VITALS: TEMP 97.6
[2019-11-10] MEDS: HYDROcodone/APAP 7.5-325MG 1 EACH TAB PO PRN ×2 (03:03→13:34)
[2019-11-10 05:36] VITALS: BP 152/87; PULSE 62; RESP 18
[2019-11-10] MEDS ORDERED: INSULIN DETEMIR (LEVEMIR) 100 UNIT/ML SYR SQ SCH (07:00)
[2019-11-10 07:26] LABS: Glucose,Whole Blood 256 mg/dL (75-99)
[2019-11-10] MEDS: INSULIN ASPART (NovoLOG) 100 UNIT/ML VIAL SQ SCH ×2 (08:00→13:15)
[2019-11-10] MEDS: predniSONE 20 MG TAB PO SCH (08:01)
[2019-11-10] MEDS: AZITHROMYCIN 250 MG TAB PO SCH (08:01)
[2019-11-10] MEDS: HYDROCORTISONE 1% CREAM 30 GM TUBE TOPICAL SCH (08:01)
[2019-11-10] MEDS: MORPHINE SULFATE 2 MG/ML SYRINGE IVP PRN (08:08)
[2019-11-10 12:20] LABS: Glucose,Whole Blood 362 mg/dL (75-99)
--- NOTE | 2019-11-10 13:02 | P.PN ---
Subjective Progress Note Date: 11/10/19 This patient is a 39-year-old male with a past medical history of diabetes and sarcoidosis that presented to [facility] ER 11/06/19 with complaints of left ankle pain. The patient states he began to experience left ankle pain about 3 days ago. Patient states there was no injury or trauma to the ankle. He states he just woke up a few days ago with significant pain and swelling. He states the pain has increased over the past 3 days. He states the pain is diffuse. He states the pain is very severe with any movement or weightbearing the left ankle. He states he was crawling around his house yesterday due to the pain. He denies history of gout. He denies history of any similar episodes in the past. Upon arrival to the ER, patient had a fever of 101 degrees, white blood cell count 6.6, ESR 18, CRP 39.7. Venous Doppler study of the left lower extremity negative for DVT. Patient was admitted under the care of of internal medicine with a consult placed to orthopedic surgery for consideration of left ankle septic arthritis. The patient was initially admitted to [facility], although after evaluation by internal medicine, the patient was transferred to [facility], with with concerns for suspected COVID 19 due to recent positive contacts and travel to [place]. At the time of my exam, the patient is complaining of severe left ankle pain. There are no additional complaints. Vital signs stable, patient currently afebrile. 11/10/19: Patient is examined bedside this morning due to ongoing pain in the left ankle. Patient states his pain has improved 100% since admission. He states his right ankle is not significantly painful, he states he thought he noticed swelling yesterday, and that was how his left ankle episode began, therefore he became worried. He has the CAM boot, although he has not attempted ambulating in the boot yet. He has no new complaints today. Vital signs stable. Objective - Vital Signs Vital signs: Vital Signs Temp 97.6 F 11/10/19 05:35 Pulse 62 11/10/19 05:35 Resp 18 11/10/19 05:35 BP 152/87 11/10/19 05:35 Pulse Ox 94 L 11/10/19 05:35 Intake & Output 11/09/19 11/10/19 11/10/19 18:59 06:59 18:59 Intake Total 580 Balance 580 Intake: Oral 580 Other: Voiding Method Urinal Urinal # Voids 2 3 # Bowel Movements 1 2 - Exam At the time of my exam, the patient is sitting up in bed in no apparent d istress. He appears comfortable today. His breathing appears nonlabored. Nasal cannula in place. On inspection of the left ankle, there is minimal joint effusion. There is no overlying erythema. There is minimal pain to palpation of the ankle and foot. There is mild pain with passive range of motion of the ankle, although I am able to perform much more range of motion compared to previous exam. There is no pain on palpation of the left calf or left knee. Motor and sensory function appear intact of the left lower extremity. The left lower extremity is warm and well-perfused with brisk capillary refill distally. On inspection of the right ankle, there is no significant swelling or joint effusion. No overlying erythema or warmth. No pain on palpation of the ankle. - Labs CBC & Chem 7: 11/08/19 07:37 11/09/19 06:37 Labs: Abnormal Lab Results - Last 24 Hours (Table) 11/09/19 11/09/19 11/10/19 Range/Units 16:41 20:27 07:22 POC Glucose (mg/dL) 421 H 433 H 256 H (75-99) mg/dL 11/10/19 Range/Units 12:17 POC Glucose (mg/dL) 362 H (75-99) mg/dL Microbiology - Last 24 Hours (Table) 11/06/19 09:00 Gram Stain - Final Synovial Fluid Body Fluid Culture - Final 11/06/19 02:47 Blood Culture - Preliminary Blood No Growth after 96 hours Assessment and Plan Assessment: Acute gout flare, left ankle Plan: - I again discussed with the patient his symptoms are most likely related to an acute gout flare. His ankle pain appears to be improved on steroids. The patient agrees that his pain has improved a significant amount. - Recommended continued treatment of gout by internal medicine. We again discussed a possible cortisone injection into the left ankle, although patient is not interested in this today as his pain has improved. - He may use the CAM boot for assistance with ambulation, although he may discontinue this as tolerated. - We will sign off the patient, please contact if any additional questions or concerns. He may follow-up with Dr. Leavitt in the office on an as-needed basis.
--- NOTE | 2019-11-10 15:22 | P.DS ---
Providers Date of admission: 11/06/19 09:07 Expected date of discharge: 11/10/19 Attending physician: Alen Peña MD Consults: 11/06/19 03:35 Consult Physician Urgent Consulting Provider: Harry Leavitt Consult Reason/Comments: concern for septic ankle Do you want consulting provider notified?: Yes, Notify in am 11/07/19 13:07 Consult Physician Routine Consulting Provider: Ilya Gomez Consult Reason/Comments: sarcoidosis Do you want consulting provider notified?: Yes Primary care physician: Stated None Hospital Course: 39-year-old male with diabetes mellitus and sarcoidosis presented to the ER due to 3 day history of left ankle swelling pain and inability to ambulate or stand. It happened all of a sudden, no injury or trauma, no fall. This has never happe dora before, no history of gout. He also had some fever off and on associated with coughing mild in nature dry, sore throat, and mild diarrhea loose bowel movement brownish in color. Patient denies any changes in smell or taste sensation denies any headache denies any body aches other than the left ankle. Patient then recalled that he's been in close contact with a friend who has heard that tested positive for Covid 19. Patient also reports recent traveling multiple times to [facility] last traveling was October 05. In the ED x-ray of the left ankle showed no acute fractures. He was admitted, he had Doppler ultrasound of the lower extremities and that did not show evidence of DVT. Patient was seen by orthopedic surgery who did an arthrocentesis of the left ankle and that showed some urate crystals. Due to that he was started on Toradol IV, prednisone by mouth. Patient was tested for Covid 19 and that came back negative. His initial chest x-ray showed slight pneumonia so was started on azithromycin. Follow-up chest x-ray was clear. Currently he only has some hoarsening of his voice, no other complaints. Today's able to walk with the assistance of crutches. Patient has lost his insurance and his primary Care physician is currently in [place] and cannot come back to the country so all of his prescriptions were renewed and he was given enough refills until he establishes himself with a new primary care physician. Time for discharge .35min Patient Condition at Discharge: Stable Plan - Discharge Summary New Discharge Prescriptions: New Hydrocortisone Cream [Hydrocortisone 1% Cream] 1 applic TOPICAL BID 30 Days #17 gm Insulin Detemir (Levemir) [Levemir] 18 unit SQ DAILY@0700 30 Days #20 ml methylPREDNISolone Dose Pack [Medrol Dose Pack] 4 mg PO DIRECTED #21 package HYDROcodone/APAP 7.5-325MG [[place] 7.5-325] 1 each PO Q6H PRN tab PRN Reason: MODERATE Pain INSULIN ASPART (NovoLOG) [NovoLOG (formulary)] 10 unit SQ TID 30 Days #20 ml Albuterol Inhaler [Ventolin Hfa Inhaler] 2 puff INHALATION RT-Q6H PRN 30 Days #2 puff PRN Reason: Difficulty breathing Azithromycin [Zithromax] 250 mg PO DAILY 2 Days #2 tab metFORMIN HCL 1,000 mg PO BID 30 Days #60 tab Discharge Medication List Albuterol Inhaler [Ventolin Hfa Inhaler] 2 puff INHALATION RT-Q6H PRN 30 Days #2 puff 11/10/19 [Rx] Azithromycin [Zithromax] 250 mg PO DAILY 2 Days #2 tab 11/10/19 [Rx] HYDROcodone/APAP 7.5-325MG [[place] 7.5-325] 1 each PO Q6H PRN tab 11/10/19 [Rx] Hydrocortisone Cream [Hydrocortisone 1% Cream] 1 applic TOPICAL BID 30 Days #17 gm 11/10/19 [Rx] INSULIN ASPART (NovoLOG) [NovoLOG (formulary)] 10 unit SQ TID 30 Days #20 ml 11/10/19 [Rx] Insulin Detemir (Levemir) [Levemir] 18 unit SQ DAILY@0700 30 Days #20 ml 11/10/19 [Rx] metFORMIN HCL 1,000 mg PO BID 30 Days #60 tab 11/10/19 [Rx] methylPREDNISolone Dose Pack [Medrol Dose Pack] 4 mg PO DIRECTED #21 package 11/10/19 [Rx] Follow up Appointment(s)/Referral(s): [facility] [NON-STAFF] - As Needed ([facility]. [facility] will call to make arrangements. ) None,Stated [Primary Care Provider] - 1-2 days Harry Leavitt MD [STAFF PHYSICIAN] - As Needed Ilya Gomez MD [STAFF PHYSICIAN] - 1 Week Patient Instructions/Handouts: Gout (DC) Activity/Diet/Wound Care/Special Instructions: Free glucometer given to patient. To obtain lancets/test strips, patient may purchase them at [employer] or [employer] activity as tolerated regular diet as tolerated
== END 2019-11-10 16:08 | disposition home or self-care (01) | DRG 553 ==
LOC: EC 01:40 → 5NMEDONC 03:35 → 4SSUR 06:23 → OBSVTOIN 09:07 → 6NMEDSUR 20:46
PROVIDERS: ADMIT Internal Medicine; ATTEND Internal Medicine
PROC: 0S9G3ZX Drainage of Left Ankle Joint, Percutaneous Approach, Diagnostic (ICD-10-PCS; principal; 2019-11-06)
DX: M10.9 Gout, unspecified (principal); J18.9 Pneumonia, unspecified organism; Z68.41 Body mass index [BMI] 40.0-44.9, adult; E87.2 Acidosis; E66.01 Morbid (severe) obesity due to excess calories; Z20.828 Contact with and (suspected) exposure to other viral communicable diseases; D86.9 Sarcoidosis, unspecified; E11.65 Type 2 diabetes mellitus with hyperglycemia; L30.9 Dermatitis, unspecified; T38.3X6A Underdosing of insulin and oral hypoglycemic [antidiabetic] drugs, initial encounter; T38.0X5A Adverse effect of glucocorticoids and synthetic analogues, initial encounter; Z91.128 Patient's intentional underdosing of medication regimen for other reason; Y63.6 Underdosing and nonadministration of necessary drug, medicament or biological substance; Z87.01 Personal history of pneumonia (recurrent); Z98.890 Other specified postprocedural states; Z88.5 Allergy status to narcotic agent; Z88.8 Allergy status to other drugs, medicaments and biological substances; Z91.040 Latex allergy status
CPT/HCPCS: 36415; 71045; 71046; 80053; 82550; 82565; 83605; 84550; 85025; 85027; 85379; 85610; 85652; 85730; 86140; 87040; 87070; 87205; 87324; 87502; 87635; 89050; 89060; 93005; 94640; 96361; 96365; 96375; 99285

== ENCOUNTER 2019-12-27 11:07 | Emergency (ER) | payer OTHER ==
[2019-12-27 11:16] VITALS: BP 104/64; PULSE 79; RESP 18; TEMP 98.2
[2019-12-27] MEDS ORDERED: HYDROcodone/APAP 7.5-325MG 1 EACH TAB PO ONE (11:59)
--- NOTE | 2019-12-27 12:00 | XR ---
EXAMINATION TYPE: XR foot complete LT DATE OF EXAM: 12/27/2019 CLINICAL HISTORY: Left foot pain, swelling and redness with history of gout TECHNIQUE: Frontal, lateral, and oblique images of the left foot are obtained. COMPARISON: None FINDINGS: There is no acute fracture/dislocation evident in the left foot. The joint spaces in the left foot appear within normal limits. Plantar enthesophyte is seen. Incidentally noted ossicle adjac ent to the cuboid. Osseous proliferation of the medial aspect of the base of the distal phalanx of th e left great toe. Mild degenerative change of the distal interphalangeal joints, limited by flexion d eformities. The overlying soft tissue appears unremarkable. IMPRESSION: There is no acute fracture or dislocation in the left foot. Mild osseous perforation of the medial aspect of the base of the distal phalanx of the left great toe. This may be sequela of gou t.
--- NOTE | 2019-12-27 12:31 | ED ---
Extremity Problem HPI - General Source: patient Mode of arrival: wheelchair Limitations: no limitations <Marilu Pereyra - Last Filed: 12/27/19 12:44> <Nataliya Espinozaah Mee - Last Filed: 12/29/19 02:08> - General Chief complaint: Extremity Problem,Nontraumatic Stated complaint: Foot pain Time Seen by Provider: 12/27/19 11:20 - History of Present Illness Initial comments: 39-year-old male history of gout his left foot and ankle presented [facility] for left foot and ankle pain. Patient states has been ongoing for 3 days cc she he has been taking tramadol which has not helped. Patient states feels similar to his headache exacerbation the past. Patient denies any fevers. Patient denies ankle or calf pain. Denies history of DVT/Heart failure. States there is mild redness and swelling of the left ankle joint. Patient also has pain in great toe and foot. Patient states his PCP of [id number] and he also has no one to prescribe his diabetic medications that are running low. Patient denies any other associated symptoms such as increased frequency of urination, SOB, weakness, denies pallor or coolness of extremity. Upon arrival he appears well there is no signs of acute distress. (Marilu Pereyra) - Related Data Home Medications Medication Instructions Recorded Confirmed Glimepiride [Amaryl] 1 mg PO BID 12/27/19 12/27/19 HYDROcodone/APAP 7.5-325MG [Norphlet 1 tab PO Q6H PRN 12/27/19 12/27/19 7.5-325] Insulin Glargine,Hum.rec.anlog 20 unit SQ BID 12/27/19 12/27/19 [Basaglar Kwikpen U-100] sitaGLIPtin [Januvia] 100 mg PO DAILY 12/27/19 12/27/19 traMADol HCL 50 mg PO TID PRN 12/27/19 12/27/19 Previous Rx's Medication Instructions Recorded Albuterol Inhaler [Ventolin Hfa 2 puff INHALATION RT-Q6H PRN 30 11/10/19 Inhaler] Days #2 puff Hydrocortisone Cream 1 applic TOPICAL BID 30 Days #17 gm 11/10/19 [Hydrocortisone 1% Cream] metFORMIN HCL 1,000 mg PO BID 30 Days #60 tab 11/10/19 Glimepiride [Amaryl] 1 mg PO BID 15 Days #30 tab 12/27/19 Hydrocodone/Acetaminophen [Norphlet 1 tab PO Q6HR PRN 3 Days #12 tab 12/27/19 7.5-325] Indomethacin [Indocin] 50 mg PO TID 5 Days #15 capsule 12/27/19 Insulin Glargine,Hum.rec.anlog 20 unit SQ BID 15 Days #1 pen 12/27/19 [Basaglar Kwikpen U-100] sitaGLIPtin [Januvia] 100 mg PO DAILY 15 Days #15 tab 12/27/19 Allergies Allergy/AdvReac Type Severity Reaction Status Date / Time diphenhydramine HCl Allergy Anaphylaxis Verified 12/27/19 11:16 [From Benadryl] hydromorphone HCl Allergy Anaphylaxis Verified 12/27/19 11:16 [From Dilaudid] latex Allergy Rash/Hives Verified 12/27/19 11:16 Review of Systems ROS Other: All systems not noted in ROS Statement are negative. <Marilu Pereyra - Last Filed: 12/27/19 12:44> ROS Other: All systems not noted in ROS Statement are negative. <Mariia Espinoza - Last Filed: 12/29/19 02:08> ROS Statement: Those systems with pertinent positive or pertinent negative responses have been documented in the HPI. Past Medical History Past Medical History: Diabetes Mellitus Additional Past Medical History / Comment(s): Sarcoidosis, PNEUMONIA, gout History of Any Multi-Drug Resistant Organisms: None Reported Past Surgical History: No Surgical Hx Reported Additional Past Surgical History / Comment(s): Exploratory Surgery of neck 2000 Past Psychological History: No Psychological Hx Reported Smoking Status: Never smoker Past Alcohol Use History: None Reported Past Drug Use History: None Reported - Past Family History Family Family Medical History: No Reported History <Marilu Pereyra - Last Filed: 12/27/19 12:44> General Exam Limitations: no limitations <Marilu Pereyra - Last Filed: 12/27/19 12:44> - General Exam Comments Initial Comments: General: The patient is awake and alert, in no distress, and does not appear acutely ill. Eye: Pupils are equal, round and reactive to light, extra-ocular movements are intact. No nystagmus. There is normal conjunctiva bilaterally. No signs of icterus. Cardiovascular: There is a regular rate and rhythm. No murmur, rub or gallop is appreciated. Respiratory: Lungs are clear to auscultation, respirations are non-labored, breath sounds are equal. No wheezes, stridor, rales, or rhonchi. Gastrointestinal: Soft, non-distended, non-tender abdomen without masses or organomegaly noted. There is no rebound or guarding present. Musculoskeletal: There is swelling of lateral malleolus of the left ankle, some mild redness,pain over great toe of left foot and ankle joint Normal ROM of ankle foot with tenderness. Strength 5/5. Sensation intact. DP and posterior tibial pulses equal bilaterally 2+. No calf pain or swelling. No LE edema. Neurological: A&O x 3. CN II-XII intact grossly, There are no obvious motor or sensory deficits. Coordination appears grossly intact. Speech is normal. Skin: Skin is warm and dry and no rashes or lesions are noted. Psychiatric: Cooperative, appropriate mood & affect, normal judgment. (Marilu Pereyra) Course Vital Signs 12/27/19 11:13 Temperature 98.2 F Pulse Rate 79 Respiratory 18 Rate Blood Pressure 104/64 O2 Sat by Pulse 99 Oximetry Medical Decision Making <Marilu Pereyra - Last Filed: 12/27/19 12:44> <Mariia Espinoza - Last Filed: 12/29/19 02:08> - Medical Decision Making 39-year-old male presenting today for chief complaint of foot and ankle pain identical when he's had a gout exacerbation in the past. No calf pain no edema. No fevers. X-ray consistent with gout exacerbation. Patient be started on indomethacin he denies any rectal bleeding steroid use or history of peptic ulcer disease. Patient will also be prescribed Norphlet for the pain is not controlled with tramadol. Discussed the risks associated with Weight use patient is agreeable and aware of risk of respiratory suppression , addition and even . Patient will be discharged with pcp f/u. [facility] clinic until he can locate another PCP. Patient medications refilled for two weeks. Dr Espinoza agreeable to care plan and discharge. (Marilu Pereyra) I was available for consultation in the emergency department. The history and physical exam were done by the midlevel provider. I was consulted for this patients care. I reviewed the case with the midlevel provider and based on their presentation of the patient, I agree with the assessment, medical decision making and plan of care as documented. Chart was dictated using [employer] dictation software. Attempts were made to correct any dictation errors however some typographical errors may persist. Patient was seen during a [facility] of emergency due to the Covid-19 pandemic. (Mariia Espinoza) Disposition Is patient prescribed a controlled substance at d/c from ED?: No Time of Disposition: 12:31 <Marilu Pereyra - Last Filed: 12/27/19 12:44> <Mariia Espinoza - Last Filed: 12/29/19 02:08> Clinical Impression: Gout flare, Foot pain, left, Left ankle pain, Medication refill Disposition: HOME SELF-CARE Condition: Good Instructions (If sedation given, give patient instructions): Low Purine Diet (ED), Gout (ED) Additional Instructions: Please use medication as discussed. Please follow-up with family doctor in the next 2 days. Please return to emergency room if the symptoms increase or worsen or for any other concerns. Prescriptions: Glimepiride [Amaryl] 1 mg PO BID 15 Days #30 tab Insulin Glargine,Hum.rec.anlog [Basaglar Kwikpen U-100] 20 unit SQ BID 15 Days #1 pen Indomethacin [Indocin] 50 mg PO TID 5 Days #15 capsule sitaGLIPtin [Januvia] 100 mg PO DAILY 15 Days #15 tab Hydrocodone/Acetaminophen [Norphlet 7.5-325] 1 tab PO Q6HR PRN 3 Days #12 tab PRN Reason: Severe Pain Referrals: None,Stated [Primary Care Provider] - 1-2 days [facility] [NON-STAFF] - 1-2 days
== END 2019-12-27 13:07 | disposition home or self-care (01) ==
LOC: EC 11:07
DX: M10.9 Gout, unspecified (principal); Z76.0 Encounter for issue of repeat prescription; E11.9 Type 2 diabetes mellitus without complications; Z79.4 Long term (current) use of insulin; Z88.8 Allergy status to other drugs, medicaments and biological substances; Z91.040 Latex allergy status; Z88.5 Allergy status to narcotic agent
CPT/HCPCS: 99283

== ENCOUNTER 2020-01-12 20:55 | Emergency (ER) | payer OTHER ==
[2020-01-12] MEDS ORDERED: KETOROLAC 30 MG/ML 1 ML VIAL IVP STA (22:34)
[2020-01-12] MEDS ORDERED: SODIUM CHLORIDE 0.9% 1,000 ML IV ONE (22:34)
[2020-01-12 23:31] LABS: Basophils # (A) 0.1 k/uL (0-0.2); Basophils % (A) 1 %; Eosinophils # (A) 0.2 k/uL (0-0.7); Eosinophils % (A) 3 %; HCT 41.7 % (39.0-53.0); HGB 14.6 gm/dL (13.0-17.5); Lymphocytes # (A) 2.1 k/uL (1.0-4.8); Lymphocytes % (A) 29 %; MCH 29.8 pg (25.0-35.0); MCHC 35.1 g/dL (31.0-37.0); Mean Platelet Volume 7.4; Monocytes # (A) 0.4 k/uL (0-1.0); Monocytes % (A) 6 %; Neutrophils # (A) 4.2 k/uL (1.3-7.7); Neutrophils % (A) 59 %; Platelet Count 242 k/uL (150-450); RBC 4.91 m/uL (4.30-5.90); RDW 13.3 % (11.5-15.5); WBC 7.1 k/uL (3.8-10.6)
--- NOTE | 2020-01-12 23:31 | XR ---
EXAMINATION TYPE: XR chest 2V DATE OF EXAM: 01/12/2020 COMPARISON: 11/07/2019 HISTORY: Short of breath TECHNIQUE: FINDINGS: Heart and mediastinum are normal. Lungs are clear. Diaphragm is normal. Bony thorax appears normal. IMPRESSION: Normal chest. No change.
--- NOTE | 2020-01-12 23:46 | CT ---
CT scan of the left foot and ankle. History pain and swelling for 2 months. Comparison none. TECHNIQUE: Multiple axial sections were obtained from the mid tibia to the bottom of the foot without contrast. FINDINGS: The ankle mortise is anatomic. Ankle joint spaces are fairly normal. Subtalar joint is intact. There is moderate matter and Achilles calcaneal spurring. Talonavicular joint is intact. Tarsal bones are i ntact. Metatarsals are intact. There are no erosions. There is no subluxation. There is some soft tis derek swelling on the dorsum of the forefoot. There is multiple hammertoe deformity. I see no focal bon e destruction. There is no evidence of a soft tissue mass. IMPRESSION: No fracture seen. Subcutaneous edema on the dorsum of the foot. Plantar and Achilles calcaneal spur formation. No evidence of inflammatory arthritis. Multiple hammer toe deformity. Normal foot and ankle joint spaces.
[2020-01-12 23:48] LABS: ALT 23 U/L (4-49); AST 23 U/L (17-59); African American GFR (CKD) >90 (>60 ml/min/1.73 sqM); Albumin 3.9 g/dL (3.5-5.0); Alkaline Phosphatase 54 U/L (38-126); Anion Gap 7 mmol/L; Blood Urea Nitrogen 10 mg/dL (9-20); C Reactive Protein 23.3 mg/L (<10.0); Calcium 8.8 mg/dL (8.4-10.2); Carbon Dioxide 25 mmol/L (22-30); Chloride 105 mmol/L (98-107); Glucose 133 mg/dL (74-99); Non-African American GFR(CKD) >90 (>60 ml/min/1.73 sqM); Sodium 137 mmol/L (137-145); Total Bilirubin 0.3 mg/dL (0.2-1.3); Total Protein 6.9 g/dL (6.3-8.2)
[2020-01-13 00:38] LABS: Erythrocyte Sedimentation Rate 16 mm/hr (0-15)
[2020-01-13] MEDS ORDERED: predniSONE 50 MG TAB PO STA (00:51)
[2020-01-13] MEDS ORDERED: HYDROcodone/APAP 10-325MG 1 EACH TAB PO ONE (00:51)
[2020-01-13] MEDS ORDERED: COLCHICINE 0.6 MG EACH PO STA (00:58)
--- NOTE | 2020-01-13 00:58 | ED ---
General Adult HPI - General Chief complaint: Extremity Injury, Lower Stated complaint: Revisit Foot Pain, medication refill Time Seen by Provider: 01/12/20 21:48 Source: patient Mode of arrival: ambulatory Limitations: no limitations - History of Present Illness Initial comments: 39-year-old male patient with past medical history significant for sarcoidosis affecting the lungs, presents to the emergency department today for evaluation of bilateral ankle pain and swelling worse on the left. Patient states that in November he was admitted to the hospital for similar symptoms. States he woke up one morning with swollen, red, painful ankles. States that the pain was so intense he is unable to walk or stand. Patient was admitted to the hospital at that time underwent extensive workup and was ultimately diagnosed with gout to the bilateral ankles. Patient states since being discharged he has been continuing to have pain to the ankles, intermittent fevers, occasional diarrhea, and difficulty breathing. Patient is also reporting night sweats. States he just feels generally unwell. Patient also does not currently have a primary care physician and has run out of all of his medications including his medication for diabetes. Patient denies any recent rash, cough, chest pain, abdominal pain, nausea, vomiting, numbness, tingling, dizziness, weakness, hematuria, dysuria, urinary urgency, urinary frequency, headache, visual changes, or any other complaints. - Related Data Home Medications Medication Instructions Recorded Confirmed Glimepiride [Amaryl] 1 mg PO BID 12/27/19 12/27/19 HYDROcodone/APAP 7.5-325MG [Franklin 1 tab PO Q6H PRN 12/27/19 12/27/19 7.5-325] Insulin Glargine,Hum.rec.anlog 20 unit SQ BID 12/27/19 12/27/19 [Basaglar Kwikpen U-100] sitaGLIPtin [Januvia] 100 mg PO DAILY 12/27/19 12/27/19 traMADol HCL 50 mg PO TID PRN 12/27/19 12/27/19 Previous Rx's Medication Instructions Recorded Albuterol Inhaler [Ventolin Hfa 2 puff INHALATION RT-Q6H PRN 30 11/10/19 Inhaler] Days #2 puff Hydrocortisone Cream 1 applic TOPICAL BID 30 Days #17 gm 11/10/19 [Hydrocortisone 1% Cream] metFORMIN HCL 1,000 mg PO BID 30 Days #60 tab 11/10/19 Glimepiride [Amaryl] 1 mg PO BID 15 Days #30 tab 12/27/19 Hydrocodone/Acetaminophen [[place] 1 tab PO Q6HR PRN 3 Days #12 tab 12/27/19 7.5-325] Indomethacin [Indocin] 50 mg PO TID 5 Days #15 capsule 12/27/19 Insulin Glargine,Hum.rec.anlog 20 unit SQ BID 15 Days #1 pen 12/27/19 [Basaglar Kwikpen U-100] sitaGLIPtin [Januvia] 100 mg PO DAILY 15 Days #15 tab 12/27/19 Glimepiride [Amaryl] 1 mg PO DAILY #30 tab 01/13/20 HYDROcodone/APAP 7.5-325MG [Franklin 1 tab PO Q6HR PRN 3 Days #12 tab 01/13/20 7.5-325] Insulin Glargine,Hum.rec.anlog 40 unit SQ BID #6 pen 01/13/20 [Lantus Solostar] Naproxen [EC-Naprosyn] 500 mg PO BID PRN #30 tablet. 01/13/20 predniSONE 50 mg PO DAILY #5 tablet 01/13/20 sitaGLIPtin [Januvia] 100 mg PO DAILY #30 tab 01/13/20 Allergies Allergy/AdvReac Type Severity Reaction Status Date / Time diphenhydramine HCl Allergy Anaphylaxis Verified 01/12/20 21:23 [From Benadryl] hydromorphone HCl Allergy Anaphylaxis Verified 01/12/20 21:23 [From Dilaudid] latex Allergy Rash/Hives Verified 01/12/20 21:23 Review of Systems ROS Statement: Those systems with pertinent positive or pertinent negative responses have been documented in the HPI. ROS Other: All systems not noted in ROS Statement are negative. Past Medical History Past Medical History: Diabetes Mellitus Additional Past Medical History / Comment(s): Sarcoidosis, PNEUMONIA, gout, History of Any Multi-Drug Resistant Organisms: None Reported Past Surgical History: No Surgical Hx Reported Additional Past Surgical History / Comment(s): Exploratory Surgery of neck 1999, Past Psychological History: No Psychological Hx Reported Smoking Status: Never smoker Past Alcohol Use History: None Reported Past Drug Use History: None Reported - Past Family History Family Family Medical History: No Reported History General Exam Limitations: no limitations General appearance: alert, in no apparent distress, other (This is a well- developed, well-nourished adult male patient in no acute distress. Vital signs upon presentation are temperature 98.4F, pulse 95, respirations 16, blood pressure 121/84, pulse ox 96% on room air.) Eye exam: Present: normal appearance, PERRL, EOMI. Absent: scleral icterus, conjunctival injection, periorbital swelling ENT exam: Present: normal exam, normal oropharynx, mucous membranes moist Respiratory exam: Present: normal lung sounds bilaterally. Absent: respiratory distress, wheezes, rales, rhonchi, stridor Cardiovascular Exam: Present: regular rate, normal rhythm, normal heart sounds. Absent: systolic murmur, diastolic murmur, rubs, gallop, clicks GI/Abdominal exam: Present: soft, normal bowel sounds. Absent: distended, tenderness, guarding, rebound, rigid Extremities exam: Present: full ROM, tenderness (left ankle and foot), normal capillary refill, other (Patient has soft tissue swelling to the left foot and left ankle. Ankle is warm to touch. No significant overlying erythema or rash. Right foot and ankle are also mildly edematous. Pedal posttibial pulses are 2+ and equal bilaterally.). Absent: normal inspection, pedal edema, joint swelling, calf tenderness Neurological exam: Present: alert, oriented X3, CN II-XII intact Psychiatric exam: Present: normal affect, normal mood Skin exam: Present: warm, dry, intact, normal color. Absent: rash Course Vital Signs 01/12/20 01/12/20 01/13/20 21:16 22:00 01:29 Temperature 98.4 F 98.9 F Pulse Rate 95 97 Respiratory 16 16 15 Rate Blood Pressure 121/84 146/71 O2 Sat by Pulse 96 98 Oximetry Medical Decision Making - Medical Decision Making 39-year-old male patient presented to the emergency department today for evaluation of bilateral ankle pain and swelling, worse on the left. Patient also reports intermittent fevers, night sweats, diarrhea. He is also reporting shortness of breath. Physical examination did reveal soft tissue swelling to the bilateral feet and ankles worse on the left. There is tenderness over the left ankle and foot. Neurovascular status is intact. Lungs are clear to auscultation with good air movement. He is neurologically intact with no focal deficits. Labs reviewed and did reveal mildly elevated ESR and CRP. Remainder of labs are relatively unremarkable. We did review previous medical records, specifically the synovial fluid results which showed a uric acid crystals. CT of the left ankle and foot were obtained and showed no acute abnormalities other than soft tissue swelling. I did discuss all findings and results with the patient. We did provide further treatment for possibility of gout. He will be discharged follow-up with the building coordinator. I did refill his medications. He does have an appointment with the primary care physician in 3-1/2 weeks. Return parameters were discussed in detail. He verbalizes understanding and agrees with this plan. - Lab Data Result diagrams: 01/12/20 23:15 01/12/20 23:15 Lab Results 01/12/20 01/12/20 Range/Units 23:15 23:15 WBC 7.1 (3.8-10.6) k/uL RBC 4.91 (4.30-5.90) m/uL Hgb 14.6 (13.0-17.5) gm/dL Hct 41.7 (39.0-53.0) % MCV 85.0 (80.0-100.0) fL MCH 29.8 (25.0-35.0) pg MCHC 35.1 (31.0-37.0) g/dL RDW 13.3 (11.5-15.5) % Plt Count 242 (150-450) k/uL Neutrophils % 59 % Lymphocytes % 29 % Monocytes % 6 % Eosinophils % 3 % Basophils % 1 % Neutrophils # 4.2 (1.3-7.7) k/uL Lymphocytes # 2.1 (1.0-4.8) k/uL Monocytes # 0.4 (0-1.0) k/uL Eosinophils # 0.2 (0-0.7) k/uL Basophils # 0.1 (0-0.2) k/uL ESR 16 H (0-15) mm/hr Sodium 137 (137-145) mmol/L Potassium 4.0 (3.5-5.1) mmol/L Chloride 105 (98-107) mmol/L Carbon Dioxide 25 (22-30) mmol/L Anion Gap 7 mmol/L BUN 10 (9-20) mg/dL Creatinine 0.65 L (0.66-1.25) mg/dL Est GFR (CKD-EPI)AfAm >90 (>60 ml/min/1.73 sqM) Est GFR (CKD-EPI)NonAf >90 (>60 ml/min/1.73 sqM) Glucose 133 H (74-99) mg/dL Calcium 8.8 (8.4-10.2) mg/dL Total Bilirubin 0.3 (0.2-1.3) mg/dL AST 23 (17-59) U/L ALT 23 (4-49) U/L Alkaline Phosphatase 54 (38-126) U/L C-Reactive Protein 23.3 H (<10.0) mg/L Total Protein 6.9 (6.3-8.2) g/dL Albumin 3.9 (3.5-5.0) g/dL - Radiology Data Radiology results: report reviewed, image reviewed CT of the left foot and ankle is obtained. Report was reviewed in its entirety. Impression by Dr. Jon shows no fracture seen. Subcutaneous edema on the dorsum of the foot. Plantar and Achilles calcaneal spur formation. No evidence of inflammatory arthritis. Multiple hammertoe deformities. Normal foot and ankle joint spaces. Disposition Clinical Impression: Pain, joint, ankle and foot, Lower extremity edema Disposition: HOME SELF-CARE Condition: Good Instructions (If sedation given, give patient instructions): Low Purine Diet (ED), Gout (ED), Leg Edema (ED), Arthralgia (ED) Additional Instructions: Take medications as directed. Follow-up with your primary care physician and building coordinator as soon as possible. Return to the emergency department immediately for any new, worsening, or concerning symptoms. Prescriptions: Glimepiride [Amaryl] 1 mg PO DAILY #30 tab Naproxen [EC-Naprosyn] 500 mg PO BID PRN #30 tablet. PRN Reason: Pain sitaGLIPtin [Januvia] 100 mg PO DAILY #30 tab Insulin Glargine,Hum.rec.anlog [Lantus Solostar] 40 unit SQ BID #6 pen HYDROcodone/APAP 7.5-325MG [Franklin 7.5-325] 1 tab PO Q6HR PRN 3 Days #12 tab PRN Reason: Pain predniSONE 50 mg PO DAILY #5 tablet Is patient prescribed a controlled substance at d/c from ED?: No Referrals: Vira Clancy MD [STAFF PHYSICIAN] - 1-2 days David Aguilar MD [STAFF PHYSICIAN] - 1-2 days Time of Disposition: 00:58
[2020-01-13 01:30] VITALS: BP 146/71; PULSE 97; RESP 15; TEMP 98.9
[2020-01-13] MEDS ORDERED: COLCHICINE 0.6 MG EACH PO ONE (02:00)
== END 2020-01-13 01:37 | disposition home or self-care (01) ==
LOC: EC 20:55
DX: R60.0 Localized edema (principal); M25.571 Pain in right ankle and joints of right foot; M25.572 Pain in left ankle and joints of left foot; R70.0 Elevated erythrocyte sedimentation rate; D86.9 Sarcoidosis, unspecified; M10.9 Gout, unspecified; R50.9 Fever, unspecified; R61 Generalized hyperhidrosis; R19.7 Diarrhea, unspecified; R06.02 Shortness of breath; E11.9 Type 2 diabetes mellitus without complications; Z79.4 Long term (current) use of insulin; Z88.8 Allergy status to other drugs, medicaments and biological substances; Z91.040 Latex allergy status; Z88.5 Allergy status to narcotic agent
CPT/HCPCS: 36415; 80053; 85652; 85025; 86140; 87040; 71046; 73700 ×2; 99284; 96374; 96361; J1885; J7512

== ENCOUNTER → 2021-01-18 | Outpatient (CLI) | payer OTHER ==
--- NOTE | 2021-01-18 15:28 | US ---
EXAMINATION TYPE: US venous doppler duplex LE DATE OF EXAM: 01/18/2021 3:19 PM COMPARISON: NONE CLINICAL HISTORY: L97.812 NON-PRESSURE CHRONIC ULCER OF OTHER PART O. SIDE PERFORMED: Bilateral TECHNIQUE: The lower extremity deep venous system is examined utilizing real time linear array sonog adriel with graded compression, doppler sonography and color-flow sonography. VESSELS IMAGED: Common Femoral Vein Deep Femoral Vein Greater Saphenous Vein * Femoral Vein Popliteal Vein Proximal Calf Veins (* superficial vessels) Right Leg: Negative for DVT Left Leg: Negative for DVT IMPRESSION: Grayscale, color doppler, spectral doppler imaging performed of the deep veins of the lo wer extremities. There is normal flow, compressibility, vascular waveforms.
--- NOTE | 2021-01-25 10:35 | P.ARTDOP ---
Arterial Doppler LOWER EXTREMITY ARTERIAL DOPPLER: DATE OF SERVICE: 01/18/2021 Reason for study: Left calf wound. Doppler waveforms: Multiphasic bilaterally throughout. Pulse volume recording: []. Pressure gradients: None. Ankle-brachial indices: Greater than 1 bilaterally. Toe brachial indices: 0.88 on the right, 0.86 on the left Impression: Normal study.
== END | disposition home or self-care (01) ==
LOC: RADUSWWP 13:59
PROVIDERS: ATTEND Thoracic Surgery (Cardiothoracic Vascular Surgery)
DX: L97.519 Non-pressure chronic ulcer of other part of right foot with unspecified severity (principal); L97.529 Non-pressure chronic ulcer of other part of left foot with unspecified severity
CPT/HCPCS: 93922; 93970

== ENCOUNTER 2021-04-03 19:18 | Emergency (ER) | payer OTHER ==
[2021-04-03 19:49] LABS: Glucose,Whole Blood 79 mg/dL (75-99)
[2021-04-03 20:27] LABS: Prothrombin Time 10.4 sec (9.0-12.0)
[2021-04-03] MEDS ORDERED: METOCLOPRAMIDE 5 MG/ML 2 ML VIAL IVP STA (20:28)
[2021-04-03] MEDS ORDERED: MAGNESIUM SULFATE-D5W PMX 1 GM in DEXTROSE/WATER 1 100ML.BAG IVPB ONE (20:31)
[2021-04-03 20:32] LABS: ALT 42 U/L (4-49); AST 35 U/L (17-59); African American GFR (CKD) >90 (>60 ml/min/1.73 sqM); Albumin 4.2 g/dL (3.5-5.0); Alkaline Phosphatase 68 U/L (38-126); Anion Gap 9 mmol/L; Blood Urea Nitrogen 14 mg/dL (9-20); Calcium 9.2 mg/dL (8.4-10.2); Carbon Dioxide 26 mmol/L (22-30); Chloride 104 mmol/L (98-107); Glucose 85 mg/dL (74-99); Non-African American GFR(CKD) >90 (>60 ml/min/1.73 sqM); Sodium 139 mmol/L (137-145); Total Bilirubin 0.5 mg/dL (0.2-1.3); Total Protein 7.2 g/dL (6.3-8.2)
[2021-04-03 20:40] LABS: Basophils # (A) 0.1 k/uL (0-0.2); Basophils % (A) 1 %; Eosinophils # (A) 0.2 k/uL (0-0.7); Eosinophils % (A) 2 %; HGB 15.4 gm/dL (13.0-17.5); Lymphocytes # (A) 1.9 k/uL (1.0-4.8); Lymphocytes % (A) 26 %; MCH 29.8 pg (25.0-35.0); MCHC 33.4 g/dL (31.0-37.0); MCV 89.4 fL (80.0-100.0); Mean Platelet Volume 9.3; Monocytes # (A) 0.5 k/uL (0-1.0); Monocytes % (A) 7 %; Neutrophils # (A) 4.3 k/uL (1.3-7.7); Neutrophils % (A) 60 %; Platelet Count 200 k/uL (150-450); RBC 5.15 m/uL (4.30-5.90); RDW 14.1 % (11.5-15.5); WBC 7.2 k/uL (3.8-10.6)
[2021-04-03 20:46] LABS: Partial Thromboplastin Time 17.9 sec (22.0-30.0)
--- NOTE | 2021-04-03 20:46 | XR ---
EXAMINATION TYPE: XR chest 2V DATE OF EXAM: 04/03/2021 COMPARISON: 01/12/2020 HISTORY: Short of breath. Altered mental status TECHNIQUE: 2 views FINDINGS: Heart and mediastinum are normal. Lungs are clear. Diaphragm is normal. Bony thorax is inta ct. There are chest leads. IMPRESSION: Normal chest. No change.
[2021-04-03 20:50] LABS: Potassium 4.2 mmol/L (3.5-5.1)
--- NOTE | 2021-04-03 21:30 | ED ---
Neuro HPI - General Chief Complaint: Neuro Symptoms/Deficit Stated Complaint: LT side numbness Source: patient, EMS Mode of arrival: EMS - History of Present Illness Is the patient presenting with stroke symptoms?: No Initial Comments: The patient is a 40-year-old male with past history of diabetes, sarcoidosis who presents emergency Department with reported numbness and tingling to the left side of his body. Reports that he was at home when he had sudden onset of paresthesias in his left face, left upper and lower extremity. He began feeling extremely lightheaded. He checked his sugar at home which was around 5:30 PM and found that his blood glucose was 300. States he took his insulin as directed and called an ambulance. Reports that upon their arrival to his house he sustained a fall because he felt so weak. He denies any injuries from the fall. No head trauma. Upon transfer into the hospital the patient states he felt as if he couldn't find his words. He also began having some right-sided paresthesias. No chest pain or shortness of breath. No visual changes. Denies any fevers. Does admit to cephalgia. No photophobia. No neck pain or stiffness. No history of similar episode in the past. Upon arrival to her facility blood glucose is 79. He states his sugars are "never that low". No other alleviating, precipitating or modifying factors - Related Data Home Medications: Home Medications Medication Instructions Recorded Confirmed traMADol HCL 50 mg PO TID 12/27/19 04/03/21 Albuterol Sulfate [Proventil Hfa] 2 puff INHALATION RT-BID PRN 04/03/21 04/03/21 Allopurinol [Zyloprim] 300 mg PO HS 04/03/21 04/03/21 Chlorhexidine Gluconate [Peridex] 5 ml PO BID 04/03/21 04/03/21 Colchicine 1.2 mg PO Q48H 04/03/21 04/03/21 Dulaglutide [Trulicity] 0.75 mg SQ TU 04/03/21 04/03/21 Ergocalciferol [Vitamin D2 (1250 1,250 mcg PO Q30D 04/03/21 04/03/21 Mcg = 11283 Iu)] Glimepiride [Amaryl] 2 mg PO HS 04/03/21 04/03/21 Hydrocortisone Cream 1 applic TOPICAL BID PRN 04/03/21 04/03/21 [Hydrocortisone 2.5% Cream] Insulin Glargine,Hum.rec.anlog 100 unit SQ HS 04/03/21 04/03/21 [Basaglar Kwikpen U-100] Naproxen [EC-Naprosyn] 500 mg PO HS 04/03/21 04/03/21 Nystatin [Nystop] 1 applic TOPICAL QID PRN 04/03/21 04/03/21 sitaGLIPtin [Januvia] 100 mg PO HS 04/03/21 04/03/21 Allergies/Adverse Reactions: Allergies Allergy/AdvReac Type Severity Reaction Status Date / Time diphenhydramine HCl Allergy Anaphylaxis Verified 04/03/21 22:26 [From Benadryl] hydromorphone HCl Allergy Anaphylaxis Verified 04/03/21 22:26 [From Dilaudid] latex Allergy Rash/Hives Verified 04/03/21 22:26 Review of Systems ROS Statement: Those systems with pertinent positive or pertinent negative responses have been documented in the HPI. ROS Other: All systems not noted in ROS Statement are negative. General Exam General appearance: alert, in no apparent distress Head exam: Present: atraumatic, normocephalic, normal inspection Eye exam: Present: normal appearance, PERRL, EOMI. Absent: scleral icterus, conjunctival injection, periorbital swelling ENT exam: Present: normal exam, mucous membranes moist Neck exam: Present: normal inspection. Absent: tenderness, meningismus, lymphadenopathy Respiratory exam: Present: normal lung sounds bilaterally. Absent: respiratory distress, wheezes, rales, rhonchi, stridor Cardiovascular Exam: Present: regular rate, normal rhythm, normal heart sounds. Absent: systolic murmur, diastolic murmur, rubs, gallop, clicks GI/Abdominal exam: Present: soft, normal bowel sounds. Absent: distended, tenderness, guarding, rebound, rigid Extremities exam: Present: full ROM, normal capillary refill, other (chronic, healing wounds left anterior klein). Absent: tenderness, pedal edema, joint swelling, calf tenderness Back exam: Present: normal inspection Neurological exam: Present: alert, oriented X3, CN II-XII intact Psychiatric exam: Present: normal affect, normal mood Skin exam: Present: warm, dry, intact, normal color. Absent: rash Stroke MDM - Lab Data Result diagrams: 04/03/21 20:06 04/03/21 20:13 Lab Results 04/03/21 04/03/21 04/03/21 Range/Units 19:47 20:06 20:06 WBC 7.2 (3.8-10.6) k/uL RBC 5.15 (4.30-5.90) m/uL Hgb 15.4 (13.0-17.5) gm/dL Hct 46.0 (39.0-53.0) % MCV 89.4 (80.0-100.0) fL MCH 29.8 (25.0-35.0) pg MCHC 33.4 (31.0-37.0) g/dL RDW 14.1 (11.5-15.5) % Plt Count 200 (150-450) k/uL MPV 9.3 Neutrophils % 60 % Lymphocytes % 26 % Monocytes % 7 % Eosinophils % 2 % Basophils % 1 % Neutrophils # 4.3 (1.3-7.7) k/uL Lymphocytes # 1.9 (1.0-4.8) k/uL Monocytes # 0.5 (0-1.0) k/uL Eosinophils # 0.2 (0-0.7) k/uL Basophils # 0.1 (0-0.2) k/uL PT 10.4 (9.0-12.0) sec INR 1.0 (<1.2) APTT 17.9 L (22.0-30.0) sec Sodium (137-145) mmol/L Potassium (3.5-5.1) mmol/L Chloride (98-107) mmol/L Carbon Dioxide (22-30) mmol/L Anion Gap mmol/L BUN (9-20) mg/dL Creatinine (0.66-1.25) mg/dL Est GFR (CKD-EPI)AfAm (>60 ml/min/1.73 sqM) Est GFR (CKD-EPI)NonAf (>60 ml/min/1.73 sqM) Glucose (74-99) mg/dL POC Glucose (mg/dL) 79 (75-99) mg/dL POC Glu Historic Sites Registrar ID Porrett, Abrahan Calcium (8.4-10.2) mg/dL Total Bilirubin (0.2-1.3) mg/dL AST (17-59) U/L ALT (4-49) U/L Alkaline Phosphatase (38-126) U/L Troponin I (0.000-0.034) ng/mL Total Protein (6.3-8.2) g/dL Albumin (3.5-5.0) g/dL 04/03/21 04/03/21 Range/Units 20:06 20:13 WBC (3.8-10.6) k/uL RBC (4.30-5.90) m/uL Hgb (13.0-17.5) gm/dL Hct (39.0-53.0) % MCV (80.0-100.0) fL MCH (25.0-35.0) pg MCHC (31.0-37.0) g/dL RDW (11.5-15.5) % Plt Count (150-450) k/uL MPV Neutrophils % % Lymphocytes % % Monocytes % % Eosinophils % % Basophils % % Neutrophils # (1.3-7.7) k/uL Lymphocytes # (1.0-4.8) k/uL Monocytes # (0-1.0) k/uL Eosinophils # (0-0.7) k/uL Basophils # (0-0.2) k/uL PT (9.0-12.0) sec INR (<1.2) APTT (22.0-30.0) sec Sodium 139 (137-145) mmol/L Potassium 4.2 (3.5-5.1) mmol/L Chloride 104 (98-107) mmol/L Carbon Dioxide 26 (22-30) mmol/L Anion Gap 9 mmol/L BUN 14 (9-20) mg/dL Creatinine 0.71 (0.66-1.25) mg/dL Est GFR (CKD-EPI)AfAm >90 (>60 ml/min/1.73 sqM) Est GFR (CKD-EPI)NonAf >90 (>60 ml/min/1.73 sqM) Glucose 85 (74-99) mg/dL POC Glucose (mg/dL) (75-99) mg/dL POC Glu Historic Sites Registrar ID Calcium 9.2 (8.4-10.2) mg/dL Total Bilirubin 0.5 (0.2-1.3) mg/dL AST 35 (17-59) U/L ALT 42 (4-49) U/L Alkaline Phosphatase 68 (38-126) U/L Troponin I <0.012 (0.000-0.034) ng/mL Total Protein 7.2 (6.3-8.2) g/dL Albumin 4.2 (3.5-5.0) g/dL - Medical Decision Making Upon arrival the patient is placed into room 15. A thorough history and physical exam was performed. IV is established. NIH is zero. Patient has subjective paresthesias. Laboratory studies are conducted. Patient was given 10 mg of Reglan for his headache and 1 g of magnesium. Laboratory studies are conducted. He is sent over for a CT of his head as well as CT angiography and a chest x-ray. Laboratories studies reviewed. Glucose is 85. Troponin negative. CT of the patient's brain and CT angiography are negative with no acute findings. Results are discussed the patient. He reports that his headache is resolved at this time. Patient has no further tingling. I did discuss diagnosis, differential and treatment options. Did recommend hospitalization the patient refused stating that he has a doctor's appointment on Saturday. Patient will be discharged home at this time to follow up with his primary care doctor's office. He is ambulated without signs of ataxia. Patient has a chronic wound to his left lower extremity which we did dress. If the patient is a new or worsening symptoms he is to return to the emergency room. Patient understood this, was given written and verbal discharge instructions and discharged home in stable condition 04/03/21 21:30 EKG demonstrates a sinus rhythm with a ventricular rate of 75. Urine of 150. QRS 98. QTC 417. No acute ST segment elevations. Inverted T-wave lead 3 and avf Past Medical History Past Medical History: Diabetes Mellitus Additional Past Medical History / Comment(s): Sarcoidosis, PNEUMONIA, gout, History of Any Multi-Drug Resistant Organisms: None Reported Past Surgical History: No Surgical Hx Reported Additional Past Surgical History / Comment(s): Exploratory Surgery of neck 1999, Past Psychological History: No Psychological Hx Reported Past Alcohol Use History: None Reported Past Drug Use History: None Reported - Past Family History Family Family Medical History: No Reported History Course Vital Signs 04/03/21 04/03/21 04/03/21 19:23 19:27 21:27 Temperature 97.5 F L Pulse Rate 81 75 86 Respiratory 20 20 20 Rate Blood Pressure 138/77 135/75 O2 Sat by Pulse 96 100 Oximetry 04/03/21 22:46 Temperature 98.5 F Pulse Rate 79 Respiratory 18 Rate Blood Pressure 129/79 O2 Sat by Pulse 99 Oximetry Disposition Clinical Impression: Migraine, Paresthesia Disposition: HOME SELF-CARE Condition: Stable Instructions (If sedation given, give patient instructions): Acute Headache (ED), Paresthesia (ED) Additional Instructions: Please follow up with your PCP in 2-4 days for re-evaluation. Return to the ED for any new or worsening symptoms. Is patient prescribed a controlled substance at d/c from ED?: No Referrals: David Aguilar MD [Primary Care Provider] - 1-2 days Time of Disposition: 22:29
--- NOTE | 2021-04-03 21:48 | CT ---
EXAMINATION TYPE: CT brain wo con DATE OF EXAM: 04/03/2021 COMPARISON: 10/14/2014 HISTORY: Left sided numbness. CT DLP: 1205.8 mGycm Automated exposure control for dose reduction was used. Ventricles and sulci appear normal. There is no mass effect nor midline shift. There is no sign of in tracranial hemorrhage. Calvarium is intact. There is no evidence of cerebral edema. IMPRESSION: Negative unenhanced head CT scan. No change compared to old exam.
--- NOTE | 2021-04-03 22:10 | CT ---
EXAMINATION TYPE: CT angio head neck DATE OF EXAM: 04/03/2021 COMPARISON: None HISTORY: Left sided numbness. CT DLP: 1142.2 mGycm Automated exposure control for dose reduction was used. CONTRAST: Performed with IV Contrast, patient injected with 65ml mL of Isovue 370. There are 3-D post processed images. There is normal branching pattern of the great vessels on the aortic arch. There is arterial flow in both subclavian arteries. There is arterial flow in the common internal and external carotid arteries bilaterally. There is wide patency of the carotid artery bifurcations. There is arterial flow in bot h vertebral arteries. There is no evidence of carotid or vertebral artery aneurysm or dissection. Lef t vertebral artery is slightly larger than the right. There is arterial flow in the vertebrobasilar artery system. There is arterial flow in the anterior m iddle and posterior cerebral arteries. There is no mass effect. I see no evidence of intracranial art erial stenosis. There is no sign of aneurysm or neovascularity. There is normal enhancement of the ve nous sinuses. IMPRESSION: Negative CT angiogram of the neck. Negative CT angiogram of the brain.
[2021-04-03 22:48] VITALS: BP 129/79; PULSE 79; RESP 18; TEMP 98.5
== END 2021-04-03 22:48 | disposition home or self-care (01) ==
LOC: EC 19:18
DX: R20.2 Paresthesia of skin (principal); G43.909 Migraine, unspecified, not intractable, without status migrainosus; E11.9 Type 2 diabetes mellitus without complications; Z79.4 Long term (current) use of insulin; Z79.899 Other long term (current) drug therapy; Z91.040 Latex allergy status; Z88.5 Allergy status to narcotic agent; Z88.8 Allergy status to other drugs, medicaments and biological substances
CPT/HCPCS: 99285; 96365; 96375; 36415; 93005; 80053; 84484; 85025; 85610; 85730; 71046; 70496; 70450; 70498; J2765; J3475; Q9967

== ENCOUNTER 2023-01-18 19:59 | Emergency (ER) | payer OTHER ==
[2023-01-18 20:24] VITALS: BP 134/82; PULSE 97; RESP 18; TEMP 98.1
[2023-01-18] MEDS ORDERED: MORPHINE SULFATE 4 MG/ML SYRINGE IVP STA (20:57)
--- NOTE | 2023-01-18 21:15 | ED ---
Recheck HPI - General Chief Complaint: Recheck/Abnormal Lab/Rx Stated Complaint: swollen feet Time Seen by Provider: 01/18/23 20:27 Source: patient Mode of arrival: wheelchair - History of Present Illness Initial Comments: Patient is a 42-year-old male presenting with chief complaint of swelling and pain to the bilateral legs. He was seen by his PCP in the office today and received IV Lasix, was told to come to the ER if there was no improvement. Patient does admit to shortness of breath and pain with ambulation. Patient is also complaining of a cyst to the groin. Patient states that he repeatedly gets the cyst and they normally needs to be lanced and treated with antibiotics. No fevers or chills. No chest pain or palpitations. No abdominal pain, nausea, vomiting. - Related Data Home Medications Medication Instructions Recorded Confirmed traMADol HCL 50 mg PO TID 12/27/19 04/03/21 Albuterol Sulfate [Proventil Hfa] 2 puff INHALATION RT-BID PRN 04/03/21 04/03/21 Chlorhexidine Gluconate [Peridex] 5 ml PO BID 04/03/21 04/03/21 Colchicine 1.2 mg PO Q48H 04/03/21 04/03/21 Dulaglutide [Trulicity] 0.75 mg SQ TU 04/03/21 04/03/21 Ergocalciferol [Vitamin D2 (1250 1,250 mcg PO Q30D 04/03/21 04/03/21 Mcg = 91375 Iu)] Glimepiride [Amaryl] 2 mg PO HS 04/03/21 04/03/21 Hydrocortisone Cream 1 applic TOPICAL BID PRN 04/03/21 04/03/21 [Hydrocortisone 2.5% Cream] Insulin Glargine,Hum.rec.anlog 100 unit SQ HS 04/03/21 04/03/21 [Basaglar Kwikpen U-100] Naproxen [EC-Naprosyn] 500 mg PO HS 04/03/21 04/03/21 Nystatin [Nystop] 1 applic TOPICAL QID PRN 04/03/21 04/03/21 allopurinoL [Zyloprim] 300 mg PO HS 04/03/21 04/03/21 sitaGLIPtin [Januvia] 100 mg PO HS 04/03/21 04/03/21 Previous Rx's Medication Instructions Recorded Doxycycline [Vibramycin] 100 mg PO BID 7 Days #14 capsule 01/18/23 Fluconazole 150 mg PO ONCE #1 tab 01/18/23 Indomethacin [Indocin] 50 mg PO TID PRN #21 capsule 01/18/23 Allergies Allergy/AdvReac Type Severity Reaction Status Date / Time diphenhydramine HCl Allergy Anaphylaxis Verified 04/03/21 22:26 [From Benadryl] hydromorphone HCl Allergy Anaphylaxis Verified 04/03/21 22:26 [From Dilaudid] latex Allergy Rash/Hives Verified 04/03/21 22:26 Review of Systems ROS Statement: Those systems with pertinent positive or pertinent negative responses have been documented in the HPI. ROS Other: All systems not noted in ROS Statement are negative. Past Medical History Past Medical History: CVA/TIA, Diabetes Mellitus Additional Past Medical History / Comment(s): Sarcoidosis, PNEUMONIA, gout, History of Any Multi-Drug Resistant Organisms: None Reported Past Surgical History: No Surgical Hx Reported Additional Past Surgical History / Comment(s): Exploratory Surgery of neck 1999, Past Psychological History: No Psychological Hx Reported Smoking Status: Never smoker Past Alcohol Use History: None Reported Past Drug Use History: None Reported - Past Family History Family Family Medical History: No Reported History General Exam Limitations: no limitations General appearance: alert, in no apparent distress Head exam: Present: atraumatic, normocephalic, normal inspection Eye exam: Present: normal appearance, EOMI. Absent: scleral icterus, periorbital swelling Neck exam: Present: normal inspection, full ROM Respiratory exam: Present: normal lung sounds bilaterally. Absent: respiratory distress, wheezes, rales, rhonchi, stridor Cardiovascular Exam: Present: regular rate, normal rhythm, normal heart sounds. Absent: systolic murmur, diastolic murmur, rubs, gallop, clicks Extremities exam: Present: normal inspection, full ROM, tenderness, pedal edema Neurological exam: Present: alert, oriented X3, CN II-XII intact Psychiatric exam: Present: normal affect, normal mood Skin exam: Present: warm, dry, intact, normal color Expanded Type of lesion: Present: abscess (Small cystlike structure to the groin which may be an abscess, fluctuant top, no induration, erythema, or warmth) Course Vital Signs 01/18/23 01/18/23 20:15 21:15 Temperature 98.1 F Pulse Rate 97 Respiratory 18 18 Rate Blood Pressure 134/82 O2 Sat by Pulse 95 Oximetry Medical Decision Making - Medical Decision Making Was pt. sent in by a medical professional or institution ([facility], ENTERTAINER OR VARIETY ARTIST, urgent care, hospital, or long-term...) When possible be specific @ -No Did you speak to anyone other than the patient for history (EMS, parent, family, police, friend...)? What history was obtained from this source @ -No Did you review nursing and triage notes (agree or disagree)? Why? @ -I reviewed and agree with nursing and triage notes Were old charts reviewed (outside hosp., previous admission, EMS record, old EKG, old radiological studies, urgent care reports/EKG's, long-term records)? Report findings @ -No old charts were reviewed Differential Diagnosis (chest pain, altered mental status, abdominal pain women, abdominal pain men, vaginal bleeding, weakness, fever, dyspnea, syncope, headache, dizziness, GI bleed, back pain, seizure, CVA, palpatations, mental health, musculoskeletal)? @ -Differential Musculoskeletal Muscular strain, contusion, ligament sprain, fracture, arthritis, septic arthritis, bursitis, cellulitis, muscle spasm, nerve compression, DVT, arterial occlusion, herpes zoster, electrolyte abnormality, tumor.... This is not meant to be in all inclusive list EKG interpreted by me (3pts min.). @ -Sinus rhythm ventricular rate 92. SC interval 150. QRS 102. QT 337. QTc 387. No ischemic changes. X-rays interpreted by me (1pt min.). @ -Negative x-ray of the chest and bilateral feet CT interpreted by me (1pt min.). @ -None done U/S interpreted by me (1pt. min.). @ -Ultrasound To the Bilateral Lower Extremities Negative for DVT What testing was considered but not performed or refused? (CT, X-rays, U/S, labs)? Why? @ -None What meds were considered but not given or refused? Why? @ -None Did you discuss the management of the patient with other professionals (professionals i.e. [facility]ccoy, ENTERTAINER OR VARIETY ARTIST, lab, RT, psych nurse, older adult social work specialist, lab technician, teacher, cavalry officer, case briefer)? Give summary @ -No Was smoking cessation discussed for >3mins.? @ -No Was critical care preformed (if so, how long)? @ -No Were there social determinants of health that impacted care today? How? (Homelessness, low income, unemployed, alcoholism, drug addiction, transportation, low edu. Level, literacy, decrease access to med. care, [facility], rehab)? @ -No Was there de-escalation of care discussed even if they declined (Discuss DNR or withdrawal of care, Hospice)? DNR status @ -No What co-morbidities impacted this encounter? (DM, HTN, Smoking, COPD, CAD, Cancer, CVA, ARF, Chemo, Hep., AIDS, mental health diagnosis, sleep apnea, morbid obesity)? @ -Diabetes, hypertension, morbid obesity Was patient admitted / discharged? Hospital course, mention meds given and route, prescriptions, significant lab abnormalities, going to OR and other pertinent info. @ -42-year-old male presenting with chief complaint of bilateral feet pain and swelling to lower extremities. No chest pain or increased difficulty breathing. No redness or swelling. Patient also wants the cysts on his groin which have been there repeatedly for years evaluated today. Cysts were examined and showed no signs of cellulitic changes, they were aspirated and culture was collected and sent out. Lab work is essentially negative including normal BNP. Negative x-rays of the feet and chest. Ultrasound negative for DVT. Patient is educated on today's findings and on supportive management at home. He is sent home on doxycycline for repeated cysts as well as indomethacin for pain. Follow-up with PCP. Report back to ER with any new or worsening symptoms. Discussed return parameters and answered all questions. Patient conveyed verbal understanding and agreed to the plan. I discussed this case in detail with my attending Dr. Fisher Undiagnosed new problem with uncertain prognosis? @ -No Drug Therapy requiring intensive monitoring for toxicity (Heparin, Nitro, Insulin, Cardizem)? @ -No Were any procedures done? @ -No Diagnosis/symptom? @ -Lower extremity edema Acute, or Chronic, or Acute on Chronic? @ -Acute Uncomplicated (without systemic symptoms) or Complicated (systemic symptoms)? @ -uncomplicated Side effects of treatment? @ -No Exacerbation, Progression, or Severe Exacerbation? @ -No Poses a threat to life or bodily function? How? (Chest pain, [place], VA, pneumonia, PE, COPD, DKA, ARF, appy, cholecystitis, CVA, Diverticulitis, Homicidal, Suicidal, threat to staff... and all critical care pts) @ -No - Lab Data Result diagrams: 01/18/23 21:12 01/18/23 21:12 Lab Results 01/18/23 01/18/23 01/18/23 Range/Units 21:12 21:12 21:12 WBC 6.9 (3.8-10.6) k/uL RBC 5.06 (4.30-5.90) m/uL Hgb 14.3 (13.0-17.5) gm/dL Hct 42.4 (39.0-53.0) % MCV 83.8 (80.0-100.0) fL MCH 28.3 (25.0-35.0) pg MCHC 33.8 (31.0-37.0) g/dL RDW 13.1 (11.5-15.5) % Plt Count 183 (150-450) k/uL MPV 7.4 Neutrophils % 61 % Lymphocytes % 27 % Monocytes % 7 % Eosinophils % 3 % Basophils % 1 % Neutrophils # 4.2 (1.3-7.7) k/uL Lymphocytes # 1.8 (1.0-4.8) k/uL Monocytes # 0.5 (0-1.0) k/uL Eosinophils # 0.2 (0-0.7) k/uL Basophils # 0.0 (0-0.2) k/uL PT 10.2 (9.0-12.0) sec INR 1.0 (<1.2) APTT 22.7 (22.0-30.0) sec Sodium 139 (137-145) mmol/L Potassium 4.1 (3.5-5.1) mmol/L Chloride 102 (98-107) mmol/L Carbon Dioxide 30 (22-30) mmol/L Anion Gap 7 mmol/L BUN 13 (9-20) mg/dL Creatinine 0.77 (0.66-1.25) mg/dL Est GFR (CKD-EPI)AfAm >90 (>60 ml/min/1.73 sqM) Est GFR (CKD-EPI)NonAf >90 (>60 ml/min/1.73 sqM) Glucose 214 H (74-99) mg/dL Calcium 8.9 (8.4-10.2) mg/dL Total Bilirubin 0.6 (0.2-1.3) mg/dL AST 32 (17-59) U/L ALT 42 (4-49) U/L Alkaline Phosphatase 75 (38-126) U/L Troponin I (0.000-0.034) ng/mL NT-Pro-B Natriuret Pep pg/mL Total Protein 7.6 (6.3-8.2) g/dL Albumin 4.1 (3.5-5.0) g/dL 01/18/23 01/18/23 Range/Units 21:12 21:12 WBC (3.8-10.6) k/uL RBC (4.30-5.90) m/uL Hgb (13.0-17.5) gm/dL Hct (39.0-53.0) % MCV (80.0-100.0) fL MCH (25.0-35.0) pg MCHC (31.0-37.0) g/dL RDW (11.5-15.5) % Plt Count (150-450) k/uL MPV Neutrophils % % Lymphocytes % % Monocytes % % Eosinophils % % Basophils % % Neutrophils # (1.3-7.7) k/uL Lymphocytes # (1.0-4.8) k/uL Monocytes # (0-1.0) k/uL Eosinophils # (0-0.7) k/uL Basophils # (0-0.2) k/uL PT (9.0-12.0) sec INR (<1.2) APTT (22.0-30.0) sec Sodium (137-145) mmol/L Potassium (3.5-5.1) mmol/L Chloride (98-107) mmol/L Carbon Dioxide (22-30) mmol/L Anion Gap mmol/L BUN (9-20) mg/dL Creatinine (0.66-1.25) mg/dL Est GFR (CKD-EPI)AfAm (>60 ml/min/1.73 sqM) Est GFR (CKD-EPI)NonAf (>60 ml/min/1.73 sqM) Glucose (74-99) mg/dL Calcium (8.4-10.2) mg/dL Total Bilirubin (0.2-1.3) mg/dL AST (17-59) U/L ALT (4-49) U/L Alkaline Phosphatase (38-126) U/L Troponin I <0.012 (0.000-0.034) ng/mL NT-Pro-B Natriuret Pep 16 pg/mL Total Protein (6.3-8.2) g/dL Albumin (3.5-5.0) g/dL Disposition Clinical Impression: Lower extremity edema Disposition: HOME SELF-CARE Condition: Good Instructions (If sedation given, give patient instructions): Leg Edema (ED) Additional Instructions: Follow-up with PCP. Report back to ER with any new or worsening symptoms. Take medication as prescribed. Prescriptions: Fluconazole 150 mg PO ONCE #1 tab Indomethacin [Indocin] 50 mg PO TID PRN #21 capsule PRN Reason: Pain Doxycycline [Vibramycin] 100 mg PO BID 7 Days #14 capsule Is patient prescribed a controlled substance at d/c from ED?: No Referrals: David Aguilar MD [Primary Care Provider] - 1-2 days Time of Disposition: 23:46
[2023-01-18 21:20] LABS: Basophils % (A) 1 %; Eosinophils # (A) 0.2 k/uL (0-0.7); Eosinophils % (A) 3 %; HCT 42.4 % (39.0-53.0); HGB 14.3 gm/dL (13.0-17.5); Lymphocytes # (A) 1.8 k/uL (1.0-4.8); Lymphocytes % (A) 27 %; MCH 28.3 pg (25.0-35.0); MCHC 33.8 g/dL (31.0-37.0); MCV 83.8 fL (80.0-100.0); Mean Platelet Volume 7.4; Monocytes # (A) 0.5 k/uL (0-1.0); Monocytes % (A) 7 %; Neutrophils # (A) 4.2 k/uL (1.3-7.7); Neutrophils % (A) 61 %; Platelet Count 183 k/uL (150-450); RBC 5.06 m/uL (4.30-5.90); RDW 13.1 % (11.5-15.5); WBC 6.9 k/uL (3.8-10.6)
[2023-01-18 21:37] LABS: ALT 42 U/L (4-49); AST 32 U/L (17-59); African American GFR (CKD) >90 (>60 ml/min/1.73 sqM); Albumin 4.1 g/dL (3.5-5.0); Alkaline Phosphatase 75 U/L (38-126); Anion Gap 7 mmol/L; Blood Urea Nitrogen 13 mg/dL (9-20); Calcium 8.9 mg/dL (8.4-10.2); Carbon Dioxide 30 mmol/L (22-30); Chloride 102 mmol/L (98-107); Glucose 214 mg/dL (74-99); Non-African American GFR(CKD) >90 (>60 ml/min/1.73 sqM); Potassium 4.1 mmol/L (3.5-5.1); Sodium 139 mmol/L (137-145); Total Bilirubin 0.6 mg/dL (0.2-1.3); Total Protein 7.6 g/dL (6.3-8.2)
[2023-01-18 21:47] LABS: Partial Thromboplastin Time 22.7 sec (22.0-30.0); Prothrombin Time 10.2 sec (9.0-12.0)
--- NOTE | 2023-01-18 21:52 | XR ---
EXAMINATION TYPE: XR foot complete bilateral DATE OF EXAM: 01/18/2023 9:32 PM INDICATION: Patient age:Male; 42 years old; Reason for study: increasing foot pain; . COMPARISON: 12/27/2019 TECHNIQUE: The bilateral feet was examined in the AP, oblique, and lateral projections. FINDINGS: No evidence of any acute osseous pathology. There may be mild soft tissue swelling throughout the fe et bilaterally. Joints are preserved. No evidence for osseous erosion bilaterally. Mild degeneration changes with joint space formation scattered throughout the joints of the foot. Bilateral calcaneal Achilles enthesophyte and minimal plantar spurring. IMPRESSION: 1. No evidence of acute fracture bilaterally. 2. Mild bilateral swelling throughout the feet. 3. Mild degeneration changes with joint space formation scattered throughout the joints of the foot.
--- NOTE | 2023-01-18 21:53 | XR ---
EXAMINATION TYPE: XR chest 2V DATE OF EXAM: 01/18/2023 9:31 PM COMPARISON: Chest radiographs from 04/03/2021 TECHNIQUE: XR chest 2V Frontal and lateral views of the chest. CLINICAL INDICATION:Male, 42 years old with history of difficulty breathing; FINDINGS: Lungs/Pleura: There is no evidence of pleural effusion, focal consolidation, or pneumothorax. Pulmonary vascularity: Unremarkable. Heart/mediastinum: Cardiomediastinal silhouette is unremarkable. Musculoskeletal: No acute osseous pathology. IMPRESSION: No acute cardiopulmonary disease/process.
--- NOTE | 2023-01-18 23:11 | US ---
EXAMINATION TYPE: US venous doppler duplex LE BI DATE OF EXAM: 01/18/2023 9:54 PM COMPARISON: 01/18/21 CLINICAL INDICATION: Male, 42 years old with history of swelling; feet swelling. No hx of DVT. Not on blood thinners SIDE PERFORMED: Bilateral Groin slightly limited due to body habitus TECHNIQUE: The lower extremity deep venous system is examined utilizing real time linear array sonog adriel with graded compression, doppler sonography and color-flow sonography. VESSELS IMAGED: Common Femoral Vein Deep Femoral Vein Greater Saphenous Vein * Femoral Vein Popliteal Vein Small Saphenous Vein * Proximal Calf Veins (* superficial vessels) Right Leg: No evidence for DVT Left Leg: No evidence for DVT IMPRESSION: Grayscale, color doppler, spectral doppler imaging performed of the deep veins of the lo wer extremities. There is normal flow, compressibility, vascular waveforms.
[2023-01-19] MEDS ORDERED: DEXAMETHASONE SOD PHOSPHATE 10 MG/ML 1 ML VIAL IVP STA (00:19)
[2023-01-19] MEDS ORDERED: KETOROLAC 15 MG/ML 1 ML VIAL IVP STA (00:19)
== END 2023-01-19 00:44 | disposition home or self-care (01) ==
LOC: EC 19:59
DX: R60.0 Localized edema (principal); E11.9 Type 2 diabetes mellitus without complications; Z79.4 Long term (current) use of insulin; Z88.8 Allergy status to other drugs, medicaments and biological substances
CPT/HCPCS: 36415; 93005; 83880; 80053; 84484; 85025; 85610; 85730; 73630; 71046; 93970; 99284; 96374; 96375 ×2; J2270; 87070; 87205